=== PATIENT | male | born 1955 | race Caucasian/White ===

== ENCOUNTER 2021-07-08 09:24 | Inpatient (IN) | payer MEDICARE, OTHER, SELFPAY ==
[2021-07-08] VITALS (29 sets, daily range): BP systolic 112–163; BP diastolic 65–102; PULSE 70–127; RESP 13–39; TEMP 35.1–38.3; O2SAT 93–115; BMI 44.0; BMI 43.4
--- NOTE | 2021-07-08 09:59 | DI.US.S_ITS ---
PROCEDURE: US SCROTUM INDICATIONS: SWELLING AND CELLULITIS. ?ABSCESS TECHNIQUE: Real-time scanning was performed of the scrotum and testicles, with image documentation. Color and pulse Doppler interrogation was performed of both testicles. COMPARISON: None. FINDINGS: Right: Testicle is normal in size at 5 x 3.5 x 3.4 cm, and homogenous in echotexture. Epididymis is normal in overall size and morphology. No hydrocele or varicoceles. Scrotal wall is thickened measuring 1.5 cm. Left: Testicle is normal in size at 4.8 x 4.4 x 2.2 cm, and homogeneous in echotexture. Epididymis is normal in overall size. Small epididymal head cysts. Largest measuring 0.6 cm. No hydrocele or varicoceles. Scrotal wall is thickened measuring 3.8 cm. There is increased blood flow within the scrotum. No abscess demonstrated. Doppler: Color and pulse Doppler demonstrate increased arterial flow in both testes. Venous flow on the right is not seen. Venous flow in the left is present. IMPRESSION: 1. Bilateral scrotal wall thickening with hyperemia. Left greater than right. This is suggestive of cellulitis. No fluid collection to suggest abscess. 2. Increased blood flow in both testes. This is concerning for orchitis or epididymoorchitis. 3. No testicular mass. 4. Incidental small left epididymal head cysts. Dictated by: Imer Astorga M.D. on 07/08/2021 at 10:46 Approved by: Imer Astorga M.D. on 07/08/2021 at 10:51
--- NOTE | 2021-07-08 10:04 | ED.MALEGU ---
HPI - Male Genitourinary General Chief complaint: Urogenital-Male Stated complaint: sore on inside of leg, groin area, infected Time Seen by Provider: 07/08/21 09:44 Source: patient Mode of arrival: Ambulatory Limitations: no limitations History of Present Illness HPI Narrative: This is a 66-year-old male comes emergency department with known history of atrial fibrillation anticoagulated on Xarelto. Patient states he has had a history of cyst in his groin and armpits in the past. They typically swell and drain after 2-3 days. Patient states he had a cyst start on the right upper scrotum last week. He states that he had increasing swelling in the system ventrally opened and drained but he has had increasing swelling of both testicles since then. Does not appreciate swelling up into his abdomen. He does not appreciate redness into his abdomen. He denies abdominal, back or flank pain. He started doxycycline and has had 3 doses of oral doxycycline. He has not had an objective fever but has felt chilled and hot intermittently. He denies chest pain or shortness of breath. He denies any nausea or vomiting. He denies any diarrhea constipation. He states he has been urinating but has some difficulty secondary to the swelling but is able to urinate but has to sit down. Patient states the testicles have become quite tender. He states there has been some yellow bloody drainage from the right testicle at the area of opening. Patient states it has been warm and hot. He has not had this problem and particularly in the past. He states he does not have any other prior surgeries, urological, no cardiac ablations or stents. He has only had dental procedures. Denies any drug allergies but states some drugs do make his stomach upset. He quit smoking 4 years ago after a 50 pack year history. Quit drinking 12-15 years ago. No illicit. His primary care is Dr. Barrientos. Patient went to an urgent care 2 days ago had had lab work was started on antibiotics at that point. Related Data Home Medications Medication Instructions Recorded Confirmed doxycycline hyclate 100 mg capsule 100 mg PO TID 07/08/21 07/08/21 metoprolol succinate 50 mg 50 mg PO DAILY 07/08/21 07/08/21 tablet,extended release 24 hr rivaroxaban 20 mg tablet (Xarelto) 20 mg PO DAILY 07/08/21 07/08/21 Allergies Allergy/AdvReac Type Severity Reaction Status Date / Time No Known Drug Allergies Allergy Verified 07/08/21 16:34 Review of Systems Review of Systems ROS Unobtainable: All systems reviewed & are unremarkable except as noted in HPI and below Patient History Social History household members: spouse and children Smoking Status: Former smoker alcohol intake: never Smoking Status: Former smoker Substance Use Type: does not use Exam Narrative Exam Narrative: GENERAL: Alert and oriented x three, obese male in [id number] distress. HEENT: Head normocephalic, atraumatic, EOMI, pupils reactive, face symmetric, moist mucous membranes NECK: Supple, full range of motion CARDIOVASCULAR: Regular rate and rhythm without murmurs, rubs or gallops. RESPIRATORY: Breath sounds equal bilaterally, no wheezes rales or rhonchi. ABDOMEN: Soft, nontender. Normoactive bowel sounds all 4 quadrants. No guarding or rebound, rigidity, no mass : No CVA tenderness. Male: Patient has significant swelling of bilateral testicles and the tissue surrounding penis. Testicles are approximately small cantaloupe size on each side. There is erythema, there is warmth there is induration with an area dimpling with some drainage at the right lateral upper region of the scrotal sac. There is a foul odor consistent with infection. There is no penile discharge or lesions, penis is visualized but is difficult to fully visualize secondary to surrounding swelling. Patient does have tenderness to palpation. No clear area of fluctuance is easily palpated. EXTREMITIES: Normal range of motion, no clubbing or edema. Neurovascularly intact NEUROLOGICAL: Cranial nerves II through XII grossly intact. Moving all extremities SKIN: Warm, dry, no petechiae, no rashes or lesions. Initial Vital Signs Initial Vital Signs: Vital Signs Temperature 99.1 F 07/08/21 09:24 Pulse Rate 126 H 07/08/21 09:24 Respiratory Rate 18 07/08/21 09:24 Blood Pressure 160/102 H 07/08/21 09:24 Pulse Oximetry 98 07/08/21 09:24 Course Orders Ordered: ED Orders 07/08/21 11:26 Blood Culture Stat 07/08/21 12:33 CT pelvis w con Stat 07/08/21 13:10 Urinalysis and Microscopic Stat 07/08/21 14:54 [place] [facility] [place] Fentanyl (Fentanyl 100 Mcg/2 Ml Inj) 0 mcg IV Q5M PRN PRN Reason: Pain, Moderate (4-6) Hydromorphone HCl (Hydromorphone 2 Mg Inj) 0 mg IV Q5M PRN PRN Reason: Pain, Severe (7-10) Levofloxacin (Levaquin) 750 mg in 150 mls @ 100 mls/hr IV NOW [facility] Last Infusion: 07/08/21 14:20 Dose: 0 mls/hr Documented by: Admin: 07/08/21 12:45 Dose: 100 mls/hr Documented by: KEITH Lactated Ringer's (Lactated Ringers) 500 mls @ 25 mls/hr IV CONT SUNIL Lactated Ringer's (Lactated Ringers) 1,000 mls @ 42 mls/hr IV NOW ONE Stop: 07/09/21 16:53 Last Admin: 07/08/21 17:05 Dose: 42 mls/hr Documented by: APRESTON Lorazepam (Lorazepam 2 Mg/Ml Inj) 0.25 mg IV NOW PRN PRN Reason: Anxiety Ondansetron HCl (Ondansetron 4 Mg/2 Ml Inj) 4 mg IV NOW PRN PRN Reason: Nausea And Vomiting Oxycodone/Acetaminophen (Oxycodone/Acetaminophen 5/325 Tablet) 1 tab PO PACUNOW PRN PRN Reason: Mild or Moderate Pain Discontinued Medications Bupivacaine Liposome (Bupivacaine Liposome 266 Mg/20 Ml Vial) 266 mg INJ INTRA-OP ONE Stop: 07/08/21 16:59 Sodium Chloride 500 ml/Neomycin/Polymyxin/Bacitr/Hydrocort 1 ml 0 ml IRR NOW ONE Stop: 07/08/21 16:59 Last Admin: 07/08/21 17:54 Dose: 500 ml Documented by: BEVERLEY Bupivacaine HCl 30 ml/ (Epinephrine HCl 0.15 mg) 0 ml INJ NOW ONE Stop: 07/08/21 17:53 Last Admin: 07/08/21 17:53 Dose: 30 ml Documented by: BEVERLEY Piperacillin Sod/Tazobactam (Sod 4.5 gm/ Sodium Chloride) 100 mls @ 200 mls/hr IV NOW ONE Stop: 07/08/21 10:00 Last Infusion: 07/08/21 12:18 Dose: 0 mls/hr Documented by: Admin: 07/08/21 11:45 Dose: 200 mls/hr Documented by: KEITH Sodium Chloride (Normal Saline 0.9%) 1,000 mls @ 1,000 mls/hr IV BOLUS ONE Stop: 07/08/21 11:03 Last Infusion: 07/08/21 15:52 Dose: 0 mls/hr Documented by: Admin: 07/08/21 11:45 Dose: 1,000 mls/hr Documented by: KEITH Vancomycin HCl 3,000 mg/ (Sodium Chloride) 500 mls @ 166.667 mls/hr IV NOW ONE Stop: 07/08/21 13:29 Prothrombin Complex Concent ( Human) 2,000 unit/Miscellaneous 80 mls @ 1,061.41 mls/hr IV NOW ONE; Protocol Stop: 07/08/21 14:02 Last Infusion: 07/08/21 15:00 Dose: 0 unit/kg/min, 0 mls/hr Documented by: Admin: 07/08/21 14:54 Dose: 3 unit/kg/min, 1,061.41 mls/hr Documented by: KEITH Ampicillin Sodium/Sulbactam (Sodium 3 gm/ Sodium Chloride) 100 mls @ 100 mls/hr IV NOW ONE Stop: 07/08/21 16:59 Last Infusion: 07/08/21 17:59 Dose: 0 mls/hr Documented by: Admin: 07/08/21 17:45 Dose: 100 mls/hr Documented by: DIOGO Gentamicin Sulfate 240 mg/ (Sodium Chloride) 106 mls @ 106 mls/hr IV NOW ONE Stop: 07/08/21 16:59 Gentamicin Sulfate 240 mg/ (Sodium Chloride) 124 mls @ 124 mls/hr IV NOW ONE Stop: 07/08/21 18:14 Last Infusion: 07/08/21 17:33 Dose: 0 mls/hr Documented by: Admin: 07/08/21 17:29 Dose: 124 mls/hr Documented by: DIOGO Ketorolac Tromethamine (Ketorolac 30 Mg/Ml Vial) 15 mg IV NOW ONE Stop: 07/08/21 12:50 Last Admin: 07/08/21 13:21 Dose: 15 mg Documented by: KEITH Reevaluation(s) Time: 12:34 Consultations Consultation #1: Dr. Ceron, urology, recommends CT pelvis without contrast but can have with contrast to rule out gas. Supportive measures. Versus most common cause. Admit to hospitalist. If they would like a surgical consult at he is happy to see but at this time suspects does not require surgical intervention. Time: 12:30 Consultation #2: Margarita, hospitalist, accepts. CT ordered. Jie will consult but states he would like to be contacted if he is from the hospitalist. Recontacted air Dwayne on CT. Jie contacted and at this time recommending transfer. We did discuss that regional bed availability is extremely limited and I may not be able to have the patient transferred in a short manner. They may need to go to the OR initially and then be transferred. Patient has been reversed with Kcentra per hospital protocol for Xarelto without vitamin K being given. Dr. Serrano, general surgery. 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 She agrees the patient is stable transfer be appropriate but if there is delay the patient should go to OR. She is happy to be contact with Dr. Ceron as needed if necessary. Consultation #3: Dr. Patel, urology at [facility] and is happy to see the patient but does agree that patient could go to the OR 1st locally for initial debridement. Case is currently closed but if Dr. Ceron feels patient needs to be transferred after seeing him in person and taking him to the OR they are happy to be involved in his care. Additional Consultation(s): Dr. Ceron with patient here in the department. Plan for OR and evaluation. Dependent on patient's findings in the OR he patient may need to be transferred to tertiary care facility. We discussed about the spoken with Urology at [facility] and they are happy to be involved with the patient's care. I have reviewed antibiotic coverage with both Urology at [facility] as well as with Dr. Ceron. Vital Signs Vital signs: Vital Signs - 8 hr 07/08/21 11:30 07/08/21 12:00 07/08/21 12:30 Pulse Rate 101 H 106 H 104 H Respiratory Rate 30 H 31 H 27 H Blood Pressure Pulse Oximetry 98 98 97 07/08/21 12:45 07/08/21 13:16 07/08/21 13:30 Pulse Rate 101 H 115 H 108 H Respiratory Rate 26 H 36 H 24 Blood Pressure 156/90 H Pulse Oximetry 98 98 07/08/21 14:00 07/08/21 14:18 07/08/21 14:30 Pulse Rate 108 H 121 H 125 H Respiratory Rate 26 H 39 H 34 H Blood Pressure 163/92 H Pulse Oximetry 95 07/08/21 14:31 07/08/21 15:00 Pulse Rate 127 H 118 H Respiratory Rate 32 H 30 H Blood Pressure 128/69 Pulse Oximetry MDM - Male Genitourinary Lab Data Result diagrams: 07/08/21 09:55 07/08/21 09:55 Labs: Lab Results 07/08/21 07/08/21 07/08/21 Range/Units 09:45 09:55 09:55 WBC 15.6 H (4.5-11.0) X10^3/uL RBC 5.40 (4.5-5.9) X10^6/uL Hgb 15.6 (13.5-17.5) g/dL Hct 45.8 (41-53) % MCV 84.8 (80-100) fL MCH 28.8 (26-34) PG MCHC 34.0 (30-36) % RDW 14.4 (11.6-14.8) % Plt Count 193 (150-400) X10^3/uL Neut % (Auto) 90.9 H (50-75) % Lymph % (Auto) 2.8 L (25-40) % [place] % (Auto) 6.1 (3-14) % Eos % (Auto) 0.1 L (2-4) % Baso % (Auto) 0.1 (0-2) % Neut # (Auto) 43694 H (5922-6011) /uL Lymph # (Auto) 400 L (9583-5241) /uL [place] # (Auto) 1000 H (0-900) /uL Eos # (Auto) 0 (0-450) /uL Baso # (Auto) 0 (0-100) /uL PT 23.3 H (10.1-12.7) SECONDS INR 2.1 H (0.9-1.3) APTT (26.4-36.2) SECONDS Sodium (137-145) mmol/L Potassium (3.4-5.1) mmol/L Chloride (98-107) mmol/L Carbon Dioxide (22-32) mmol/L BUN (9-20) mg/dL Creatinine (0.66-1.25) mg/dL Estimated GFR (>60) mL/min BUN/Creatinine Ratio (6-22) Glucose (80-110) mg/dL Lactate (0.7-2.1) mmol/L Calcium (8.4-10.2) mg/dL Total Bilirubin (0.2-1.3) mg/dL AST (17-59) IU/L ALT (<50) IU/L Alkaline Phosphatase (38-126) U/L Total Protein (6.3-8.2) g/dL Albumin (3.5-5.0) g/dL Globulin (1.7-4.1) g/dL Albumin/Globulin Ratio (1.0-2.8) Procalcitonin (<0.5) ng/mL Urine Color Urine Appearance Urine pH (4.5-8.0) Ur Specific [place] (1.000-1.035) Urine Protein (Negative) Urine Glucose (UA) (Negative) g/dL Urine Ketones (NEGATIVE) Urine Occult Blood (Negative) Urine Nitrate (Negative) Urine Bilirubin (NEGATIVE) Urine Urobilinogen (0.2) E.U./dL Ur Leukocyte Esterase (NEGATIVE) Urine RBC (0-5/HPF) Urine WBC (0-5/HPF) Ur Squamous Epith Cells (0-5/HPF) Urine Bacteria (None) Hyaline Casts (None) Granular Casts (None) Urine Mucus (Negative) Ur Culture Indicated? SARS-CoV-2 (PCR) Negative (Negative) 07/08/21 07/08/21 07/08/21 Range/Units 09:55 09:55 09:55 WBC (4.5-11.0) X10^3/uL RBC (4.5-5.9) X10^6/uL Hgb (13.5-17.5) g/dL Hct (41-53) % MCV (80-100) fL MCH (26-34) PG MCHC (30-36) % RDW (11.6-14.8) % Plt Count (150-400) X10^3/uL Neut % (Auto) (50-75) % Lymph % (Auto) (25-40) % [place] % (Auto) (3-14) % Eos % (Auto) (2-4) % Baso % (Auto) (0-2) % Neut # (Auto) (4637-0530) /uL Lymph # (Auto) (6200-7605) /uL [place] # (Auto) (0-900) /uL Eos # (Auto) (0-450) /uL Baso # (Auto) (0-100) /uL PT (10.1-12.7) SECONDS INR (0.9-1.3) APTT 36 (26.4-36.2) SECONDS Sodium 135 L (137-145) mmol/L Potassium 4.0 (3.4-5.1) mmol/L Chloride 104 (98-107) mmol/L Carbon Dioxide 21 L (22-32) mmol/L BUN 23 H (9-20) mg/dL Creatinine 0.87 (0.66-1.25) mg/dL Estimated GFR > 60.0 (>60) mL/min BUN/Creatinine Ratio 26.4 H (6-22) Glucose 130 H (80-110) mg/dL Lactate 1.4 (0.7-2.1) mmol/L Calcium 9.2 (8.4-10.2) mg/dL Total Bilirubin 1.4 H (0.2-1.3) mg/dL AST 27 (17-59) IU/L ALT 19 (<50) IU/L Alkaline Phosphatase 84 (38-126) U/L Total Protein 7.8 (6.3-8.2) g/dL Albumin 4.2 (3.5-5.0) g/dL Globulin 3.6 (1.7-4.1) g/dL Albumin/Globulin Ratio 1.2 (1.0-2.8) Procalcitonin 0.42 (<0.5) ng/mL Urine Color Urine Appearance Urine pH (4.5-8.0) Ur Specific [place] (1.000-1.035) Urine Protein (Negative) Urine Glucose (UA) (Negative) g/dL Urine Ketones (NEGATIVE) Urine Occult Blood (Negative) Urine Nitrate (Negative) Urine Bilirubin (NEGATIVE) Urine Urobilinogen (0.2) E.U./dL Ur Leukocyte Esterase (NEGATIVE) Urine RBC (0-5/HPF) Urine WBC (0-5/HPF) Ur Squamous Epith Cells (0-5/HPF) Urine Bacteria (None) Hyaline Casts (None) Granular Casts (None) Urine Mucus (Negative) Ur Culture Indicated? SARS-CoV-2 (PCR) (Negative) 07/08/21 Range/Units 13:10 WBC (4.5-11.0) X10^3/uL RBC (4.5-5.9) X10^6/uL Hgb (13.5-17.5) g/dL Hct (41-53) % MCV (80-100) fL MCH (26-34) PG MCHC (30-36) % RDW (11.6-14.8) % Plt Count (150-400) X10^3/uL Neut % (Auto) (50-75) % Lymph % (Auto) (25-40) % Bound[place] % (Auto) (3-14) % Eos % (Auto) (2-4) % Baso % (Auto) (0-2) % Neut # (Auto) (7360-7042) /uL Lymph # (Auto) (4589-5323) /uL [place] # (Auto) (0-900) /uL Eos # (Auto) (0-450) /uL Baso # (Auto) (0-100) /uL PT (10.1-12.7) SECONDS INR (0.9-1.3) APTT (26.4-36.2) SECONDS Sodium (137-145) mmol/L Potassium (3.4-5.1) mmol/L Chloride (98-107) mmol/L Carbon Dioxide (22-32) mmol/L BUN (9-20) mg/dL Creatinine (0.66-1.25) mg/dL Estimated GFR (>60) mL/min BUN/Creatinine Ratio (6-22) Glucose (80-110) mg/dL Lactate (0.7-2.1) mmol/L Calcium (8.4-10.2) mg/dL Total Bilirubin (0.2-1.3) mg/dL AST (17-59) IU/L ALT (<50) IU/L Alkaline Phosphatase (38-126) U/L Total Protein (6.3-8.2) g/dL Albumin (3.5-5.0) g/dL Globulin (1.7-4.1) g/dL Albumin/Globulin Ratio (1.0-2.8) Procalcitonin (<0.5) ng/mL Urine Color Yellow Urine Appearance Clear Urine pH 5.0 (4.5-8.0) Ur Specific [place] 1.025 (1.000-1.035) Urine Protein 1+ H (Negative) Urine Glucose (UA) Trace H (Negative) g/dL Urine Ketones 1+ H (NEGATIVE) Urine Occult Blood 1+ H (Negative) Urine Nitrate Negative (Negative) Urine Bilirubin Negative (NEGATIVE) Urine Urobilinogen 0.2 (0.2) E.U./dL Ur Leukocyte Esterase Negative (NEGATIVE) Urine RBC 1-5/hpf (0-5/HPF) Urine WBC 1-5/hpf (0-5/HPF) Ur Squamous Epith Cells 0-1 /hpf (0-5/HPF) Urine Bacteria Many (>30) H (None) Hyaline Casts 0-1/lpf (None) Granular Casts 1-5/lpf (None) Urine Mucus 2+ H (Negative) Ur Culture Indicated? Cult not indicated SARS-CoV-2 (PCR) (Negative) Imaging Data US scrotum: Radiologist's Impression: [place] [address] Ultrasound Report Signed Patient: Bryan Cantu MR#: [id number] : 1955 Acct:[id number] Age/Sex: 66 / M Date of Service: 07/08/21 Loc: ED Accession Number: [id number] ?? Procedure: US scrotum Ordering Provider: Marifer Estrada D.O. PROCEDURE:? US SCROTUM ? INDICATIONS:? SWELLING AND CELLULITIS. ?ABSCESS ? TECHNIQUE:? Real-time scanning was performed of the scrotum and testicles, with image documentation.? Color and pulse Doppler interrogation was performed of both testicles.? ? COMPARISON:? None. ? FINDINGS:? ? Right:? Testicle is normal in size at 5 x 3.5 x 3.4 cm, and homogenous in echotexture.? Epididymis is normal in overall size and morphology.? No hydrocele or varicoceles.? Scrotal wall is thickened measuring 1.5 cm. ? Left:? Testicle is normal in size at 4.8 x 4.4 x 2.2 cm, and homogeneous in echotexture.? Epididymis is normal in overall size.? Small epididymal head cysts.? Largest measuring 0.6 cm.? No hydrocele or varicoceles.? Scrotal wall is thickened measuring 3.8 cm.? There is increased blood flow within the scrotum.? No abscess demonstrated. ? Doppler:? Color and pulse Doppler demonstrate increased arterial flow in both testes.? Venous flow on the right is not seen.? Venous flow in the left is present. ? IMPRESSION:? 1. Bilateral scrotal wall thickening with hyperemia.? Left greater than right.? This is suggestive of cellulitis.? No fluid collection to suggest abscess. ? 2. Increased blood flow in both testes.? This is concerning for orchitis or epididymoorchitis. ? 3. No testicular mass. ? 4. Incidental small left epididymal head cysts.? ? ? Dictated by: Imer Astorga M.D. on 07/08/2021 at 10:46 ? ? Approved by: Imer Astorga M.D. on 07/08/2021 at 10:51?? ECG Data Attestation: I personally reviewed and interpreted this ECG as follows: Prior ECG tracings: not available for review Interpretation: AFib with RVR, rate of 117, QRS of 94 and QTC of 460. No acute ST elevation appreciated. Nonspecific T-wave change. No priors available. MDM Narrative Medical decision making narrative: This is a 66-year-old male atrial fibrillation on Xarelto. Patient states he has developed cyst intermittently. He had 1 that started draining developed increasing swelling of bilateral testicles patient has had increasing pain. He has felt hot and cold been been afebrile in department. He is slightly tachycardic but in AFib RVR. This seemed responsive to fluids. On exam patient's findings are concerning for possible Estefany's. Labs show leukocytosis, normal renal function normal lactate. Patient was started on vanco, Levaquin and Zosyn. Ultrasound shows thickening but no clear fluid formation. Urology was consulted and CT pelvis shows air. Urology and I discussed they recommend transfer but based on fact that there will be a delay of transfer after discussion decision was made to take to the OR evaluate and if patient is still suspected have Estefany's plan is to transfer to a tertiary care facility. I did speak with Dr. Esther rodríguez with urology at [facility] and they are happy to see the patient after initial OR as necessary. Case was also discussed with Dr. Serrano our general surgeon. Discharge Plan Departure Patient Disposition: Admitted As Inpatient Clinical Impression: Cellulitis of scrotum, Sepsis Admit Date/Time: 07/08/21 15:10 Admit Provider: Naye Avila
[2021-07-08 10:11] LABS: Add Manual Diff / Slide Review NO; Basophils Absolute Auto 0 /uL (0-100); Basophils Percent Auto 0.1 % (0-2); Eosinophils Absolute Auto 0 /uL (0-450); Eosinophils Percent Auto 0.1 % (2-4); Hematocrit 45.8 % (41-53); Hemoglobin 15.6 g/dL (13.5-17.5); Lymphocytes Absolute Auto 400 /uL (1100-4500); Lymphocytes Percent Auto 2.8 % (25-40); Mean Corpuscular Hemoglobin 28.8 PG (26-34); Mean Corpuscular Volume 84.8 fL (80-100); Monocytes Absolute Auto 1000 /uL (0-900); Monocytes Percent Auto 6.1 % (3-14); Neutrophils Absolute Auto 14200 /uL (1500-7000); Neutrophils Percent Auto 90.9 % (50-75); Platelet Count 193 X10^3/uL (150-400); Red Cell Distribution Width 14.4 % (11.6-14.8); White Blood Cell Count 15.6 X10^3/uL (4.5-11.0)
[2021-07-08 10:13] LABS: INR 2.1 (0.9-1.3); Prothrombin Time 23.3 SECONDS (10.1-12.7)
[2021-07-08 10:19] LABS: Alanine Aminotransferase 19 IU/L (<50); Albumin 4.2 g/dL (3.5-5.0); Albumin Globulin Ratio 1.2 (1.0-2.8); Alkaline Phosphatase 84 U/L (38-126); Aspartate Aminotransferase 27 IU/L (17-59); BUN Creatinine Ratio 26.4 (6-22); Bilirubin Total 1.4 mg/dL (0.2-1.3); Blood Urea Nitrogen 23 mg/dL (9-20); Calcium 9.2 mg/dL (8.4-10.2); Carbon Dioxide 21 mmol/L (22-32); Chloride 104 mmol/L (98-107); Estimated Glomerular Filt Rate > 60.0 mL/min (>60); Globulin 3.6 g/dL (1.7-4.1); Glucose 130 mg/dL (80-110); HEMOLYSIS 18 (0-50); Lactate (Lactic Acid) 1.4 mmol/L (0.7-2.1); Sodium 135 mmol/L (137-145); Total Protein 7.8 g/dL (6.3-8.2)
[2021-07-08 10:34] LABS: PTT Partial Thromboplastin Tim 36 SECONDS (26.4-36.2); Procalcitonin 0.42 ng/mL (<0.5)
[2021-07-08 10:43] LABS: COVID19 -Nasal RAPID Negative (Negative)
[2021-07-08] MEDS: SODIUM CHLORIDE 0.9% 1,000 ML 1000 ML IV (11:45)
[2021-07-08] MEDS: PIPERACILLIN/TAZO 4.5 GM in SODIUM CHLORIDE 0.9% 100 ML 200 ML IV (11:45)
--- NOTE | 2021-07-08 12:33 | DI.CT.S_ITS ---
PROCEDURE: CT PELVIS W CON INDICATIONS: scrotal cellulitis, r/o gas TECHNIQUE: After the administration of intravenous contrast, 5 mm thick sections acquired from the iliac crests to the symphysis. 5 mm coronal and sagittal reformats were acquired. For radiation dose reduction, the following was used: automated exposure control, adjustment of mA and/or kV according to patient size. COMPARISON: None. FINDINGS: Image quality: Excellent. Peritoneum and bowel: Bowel loops demonstrate normal wall thickness and caliber. No free fluid or air. Severe sigmoid diverticulosis without evidence of diverticulitis. Genitourinary: Bladder wall thickness is normal. Nodes and vessels: No iliac, pelvic, or inguinal adenopathy by size criteria. Iliac vessels demonstrate normal size and enhancement. Bones: No suspicious bony lesions. 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 There is no gas to the left of midline. There is extensive cellulitic change. Comment: Findings were discussed with Dr. Estrada on 07/08/2021 at 1343 hours Dictated by: Faizan Fung M.D. on 07/08/2021 at 13:41 Approved by: Faizan Fung M.D. on 07/08/2021 at 13:44
[2021-07-08] MEDS: levoFLOXacin 750 MG/150 ML PIGGYBACK 100 MG IV (12:45)
[2021-07-08 13:16] LABS: Appearance Urine UA CLEAR; Bilirubin Urine UA NEGATIVE (NEGATIVE); Color Urine UA YELLOW; Glucose Urine UA TRACE g/dL (Negative); Ketones Urine UA 1+ (NEGATIVE); Leukocyte Esterase Urine UA NEGATIVE (NEGATIVE); Nitrite Urine UA NEGATIVE (Negative); Occult Blood Urine UA 1+ (Negative); Protein Urine UA 1+ (Negative); Specific Gravity Urine UA 1.025 (1.000-1.035); Urobilinogen Urine UA 0.2 E.U./dL (0.2)
[2021-07-08] MEDS: KETOROLAC 30 MG/ML VIAL 15 MG IV (13:21)
[2021-07-08 13:57] LABS: RBC Urine 1-5/HPF (0-5/HPF)
[2021-07-08 13:58] LABS: Bacteria Urine Many (>30); Granular Casts Urine 1-5/LPF; Hyaline Casts Urine 0-1/LPF; Mucus Urine 2+ (Negative); Squamous Epithelial Cell Urine 0-1 /HPF (0-5/HPF); WBC Urine 1-5/HPF (0-5/HPF)
[2021-07-08 13:59] LABS: Culture Indicated Urine Cult Not Indicated
--- NOTE | 2021-07-08 14:44 | PC.NURSE ---
Pt redness marked around genital area.
[2021-07-08] MEDS: PROTHROMBIN CPLX(PCC)4FACT 2,000 UNIT in ISOOSMOTIC VEHICLE 0 ML 1061.41 ML IV (14:54)
[2021-07-08 16:14] LABS: INR 1.6 (0.9-1.3); Prothrombin Time 17.7 SECONDS (10.1-12.7)
--- NOTE | 2021-07-08 16:26 | CM.DANOTE ---
Discharge Assoh Note: Patient is 66yo male pending admit vs transfer for cellulitis of scrotum and sepsis. Patient resides at home with his and adult son who is DDA connected. Patient reported his is culturally uncomfortable asking for help but is independent in community, drives, and can care for adult son while patient is admitted. Patient stated his home is 2 story and he had been planning to sell it for 1 story home in the near future so we could age in place. Patient is 10% disabled from service and receives minimum monthly financial for this. Patient is not VA connected or covered by VA benefits. Patient uses CPAP at home, no DME used at home currently. No home O2 use. Patient is very worried about outcome of his procedure I was not expecting all this to happen. Patient's spouse is POA. Patient has POA docs with him. Discharge Planning/Care Management CM Discharge Assessment Start: 07/08/21 16:19 Freq: Status: Active Protocol: Document 07/08/21 16:19 JONATHAN (Rec: 07/08/21 16:26 JONATHAN [id number]) Discharge Planning Assessment Assigned Cytogenetics Technologist Yao MARIN DPOA/Assigned Designee Name Rao Contact Information [phone] Advance Directives? No History Provided By Patient Has Patient been admitted in last 30 No days? Prior Living Arrangements House Comment 2 story, full baths are upstairs, pt worried about stair mobility after procedure Household Members spouse,children Comment Son is 33 diagnosed with Autism, is DDA connected Type of transporation used prior to Drives own vehicle admit Comment fully independent at baseline, no adaptive devices reported Independent with ADL's Yes Is patient alert and oriented? Yes Comment fully ind, no DME Caregiver for Another No: however, delayed adult son resides with him and spouse Comment patient will prefer HH vs facility if either is needed Barriers to Discharge No Discharge Plan Home Transportation Arrangement can transport patient via POV Whiteboard Updated in Patient Room with No name and ext. # of Cytogenetics Technologist Comment completed in ED setting Review Status In Process Next Review Type Continued Stay Review Yao MARIN
--- NOTE | 2021-07-08 16:37 | SUR.OPER ---
Supine on padded OR bed, head on pillow, arms secured on padded arm boards at <90 degrees abduction, legs uncrossed, safety belt at thigh, tape over blanket over lower legs.
--- NOTE | 2021-07-08 16:41 | PM.CN ---
History of Present Illness Consult details Date Patient Seen: 07/08/21 Time Patient Seen: 16:15 Chief complaint: sore on inside of leg, groin area, infected Reason for consult: Scrotal erythema and pain Requesting provider: Marifer Estrada Narrative: The patient is a 66-year-old morbidly obese white male who presented to the [facility] ED today with complaint of increasing scrotal pain, tenderness, and swelling. He states he has had a long history of intermittent ?cysts? of his axilla and groin. He states that they occasionally occur go through an inflammatory cycle and with warm compresses spontaneously drain and subsequently he will. Approximately 6 days ago he had onset of a similar event in the right upper hemiscrotum. Two days ago he presented to the walk-in clinic and was evaluated. He was prescribed doxycycline. He then went home and used warm compresses yesterday after at it spontaneously drained with some purulent/hemorrhagic drainage. Despite having taken 3 doxycycline the pain, tenderness, and swelling progressed in the last 24 hours prompting his presentation to the ED. He denies documented fever, but endorses having had some intermittent chills and some hot flashes with diaphoresis. He denies or GI complaints. He has no specific previous history. He has no previous diagnosis of diabetes. Presenting white blood cell count was 15.6 with left shift (90.9% neutrophils). Urinalysis is most consistent with contamination possibly related to scrotal skin edema. Meds Home Medications and Allergies Home Medications Medication Instructions Recorded Confirmed Type rivaroxaban 20 mg tablet (Xarelto) 20 mg PO DAILY 07/08/21 07/08/21 History Allergies Allergy/AdvReac Type Severity Reaction Status Date / Time No Known Drug Allergies Allergy Verified 07/08/21 16:34 Exam Vital Signs (past 8 hours): - 07/08/21 09:24 07/08/21 10:06 07/08/21 10:30 Temperature 99.1 F Pulse Rate 126 H 109 H 118 H Respiratory Rate 18 25 H 34 H Blood Pressure 160/102 H Pulse Oximetry 98 97 96 07/08/21 11:00 07/08/21 11:30 07/08/21 12:00 Temperature Pulse Rate 104 H 101 H 106 H Respiratory Rate 30 H 30 H 31 H Blood Pressure Pulse Oximetry 98 98 98 07/08/21 12:30 07/08/21 12:45 07/08/21 13:16 Temperature Pulse Rate 104 H 101 H 115 H Respiratory Rate 27 H 26 H 36 H Blood Pressure 156/90 H Pulse Oximetry 97 98 07/08/21 13:30 07/08/21 14:00 07/08/21 14:18 Temperature Pulse Rate 108 H 108 H 121 H Respiratory Rate 24 26 H 39 H Blood Pressure 163/92 H Pulse Oximetry 98 95 Oxygen Delivery Method Room Air Narrative Exam Narrative: He is a well-developed, morbidly obese white male line on the ED gurney in no apparent distress. Head/neck-sclera clear and pupils are round and equal bilaterally. No visible evidence of adenopathy or JVD. Chest-equal and unlabored expansion bilaterally. Heart-sinus tachycardia. Abdomen-obese, round, and mildly firm. No tenderness, guarding, or rebound. There is a margin of erythema just above the base of the penis and angling downward in lateral along the upper margin of the scrotum proper. Genitalia-for found edema and erythema of the scrotum and skin of the penile shaft. Glans is unremarkable with an orthotopic and patent meatus. Along the right lateral scrotum there is evidence of a recent drainage site and about a 2 cm area of deep ecchymosis. The patient is very tender and on limited exam I was not able the illicit focal fluctuance. The inferior right hemiscrotum has a 1/2 cm area of ecchymosis on the skin. Posteriorly there are no lesions or ecchymosis. Perineum is clear. Objective Labs Result Diagrams: 07/08/21 09:55 07/08/21 09:55 Labs: Laboratory Results - last 24 hr 07/08/21 07/08/21 07/08/21 09:45 09:55 09:55 WBC 15.6 H RBC 5.40 Hgb 15.6 Hct 45.8 MCV 84.8 MCH 28.8 MCHC 34.0 RDW 14.4 Plt Count 193 Neut % (Auto) 90.9 H Lymph % (Auto) 2.8 L [place] % (Auto) 6.1 Eos % (Auto) 0.1 L Baso % (Auto) 0.1 Neut # (Auto) 34708 H Lymph # (Auto) 400 L [place] # (Auto) 1000 H Eos # (Auto) 0 Baso # (Auto) 0 PT 23.3 H INR 2.1 H APTT Sodium Potassium Chloride Carbon Dioxide BUN Creatinine Estimated GFR BUN/Creatinine Ratio Glucose Lactate Calcium Total Bilirubin AST ALT Alkaline Phosphatase Total Protein Albumin Globulin Albumin/Globulin Ratio Procalcitonin Urine Color Urine Appearance Urine pH Ur Specific [place] Urine Protein Urine Glucose (UA) Urine Ketones Urine Occult Blood Urine Nitrate Urine Bilirubin Urine Urobilinogen Ur Leukocyte Esterase Urine RBC Urine WBC Ur Squamous Epith Cells Urine Bacteria Hyaline Casts Granular Casts Urine Mucus Ur Culture Indicated? SARS-CoV-2 (PCR) Negative 07/08/21 07/08/21 07/08/21 09:55 09:55 09:55 WBC RBC Hgb Hct MCV MCH MCHC RDW Plt Count Neut % (Auto) Lymph % (Auto) [place] % (Auto) Eos % (Auto) Baso % (Auto) Neut # (Auto) Lymph # (Auto) [place] # (Auto) Eos # (Auto) Baso # (Auto) PT INR APTT 36 Sodium 135 L Potassium 4.0 Chloride 104 Carbon Dioxide 21 L BUN 23 H Creatinine 0.87 Estimated GFR > 60.0 BUN/Creatinine Ratio 26.4 H Glucose 130 H Lactate 1.4 Calcium 9.2 Total Bilirubin 1.4 H AST 27 ALT 19 Alkaline Phosphatase 84 Total Protein 7.8 Albumin 4.2 Globulin 3.6 Albumin/Globulin Ratio 1.2 Procalcitonin 0.42 Urine Color Urine Appearance Urine pH Ur Specific [place] Urine Protein Urine Glucose (UA) Urine Ketones Urine Occult Blood Urine Nitrate Urine Bilirubin Urine Urobilinogen Ur Leukocyte Esterase Urine RBC Urine WBC Ur Squamous Epith Cells Urine Bacteria Hyaline Casts Granular Casts Urine Mucus Ur Culture Indicated? SARS-CoV-2 (PCR) 07/08/21 07/08/21 13:10 15:14 WBC RBC Hgb Hct MCV MCH MCHC RDW Plt Count Neut % (Auto) Lymph % (Auto) [place] % (Auto) Eos % (Auto) Baso % (Auto) Neut # (Auto) Lymph # (Auto) [place] # (Auto) Eos # (Auto) Baso # (Auto) PT 17.7 H D INR 1.6 H APTT Sodium Potassium Chloride Carbon Dioxide BUN Creatinine Estimated GFR BUN/Creatinine Ratio Glucose Lactate Calcium Total Bilirubin AST ALT Alkaline Phosphatase Total Protein Albumin Globulin Albumin/Globulin Ratio Procalcitonin Urine Color Yellow Urine Appearance Clear Urine pH 5.0 Ur Specific [place] 1.025 Urine Protein 1+ H Urine Glucose (UA) Trace H Urine Ketones 1+ H Urine Occult Blood 1+ H Urine Nitrate Negative Urine Bilirubin Negative Urine Urobilinogen 0.2 Ur Leukocyte Esterase Negative Urine RBC 1-5/hpf Urine WBC 1-5/hpf Ur Squamous Epith Cells 0-1 /hpf Urine Bacteria Many (>30) H Hyaline Casts 0-1/lpf Granular Casts 1-5/lpf Urine Mucus 2+ H Ur Culture Indicated? Cult not indicated SARS-CoV-2 (PCR) PFSH Social History household members: spouse and children Tobacco & Substance Use Smoking Status: Former smoker Assessment & Plan Assessment & Plan narrative: Assessment: 1. Right scrotal abscess/cellulitis. CT scan demonstrates focal pocket of gas the soft tissue of the scrotal wall with no evidence of extension superiorly or posteriorly into the perineum or long fascial or muscular planes. 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 Plan: 1. Thorough discussion informed consent obtained for urgent incision and drainage of right scrotal abscess. The patient was informed that the assessment is guarded with concern for early Estefany's gangrene. I discussed with him the possibility of transfer to tertiary care facility depending intraoperative findings and immediate perioperative course. 2. Recommend Infectious Disease consultation for appropriate broad-spectrum coverage of suspected organisms. Time Spent With Patient Critical Care time: I spent a total of [] minutes of critical care time on this patient's care today; this time is exclusive of procedural time.
[2021-07-08] MEDS: LACTATED RINGERS 1,000 ML 42 ML IV (17:05)
[2021-07-08] MEDS: GENTAMICIN 240 MG in SODIUM CHLORIDE 0.9% 100 ML 124 ML IV (17:29)
[2021-07-08] MEDS: AMPICILLIN/SULBACTAM 3 GM 3 GM in SODIUM CHLORIDE 0.9% 100 ML IV (17:45)
[2021-07-08] MEDS: BUPIVACAINE 0.25% (PF) 30 ML, EPINEPHrine 0.15 MG INJ (17:53)
[2021-07-08] MEDS: SODIUM CHLORIDE 0.9% 500 ML, NEOMYCIN/POLYMYXIN B IRR 1 ML IRR (17:54)
--- NOTE | 2021-07-08 19:15 | PM.OP.1 ---
Operative Date/Time/Diagnoses Date of procedure: 07/08/21 Time of procedure: 19:15 Pre-op diagnosis: Right scrotal abscess Post-op diagnosis: same Procedure & Clinicians Procedure: 1. Incision, drainage, and debridement right scrotal abscess. Same procedure as scheduled: Yes Indications: Right scrotal abscess Surgeon: Lizette Ceron Click Yes if Unassisted: Yes Anesthesia Type: General and Local (0.5% Marcaine with epinephrine) Operative Notes Findings: Marked scrotal cellulitis and thickening of the wall. Abscess cavity was oriented longitudinally in the axis of the spermatic cord within subcutaneous scrotal wall tissue. Approximately 10 cc of malodorous brownish green thick purulent material was drained. Extensive surrounding necrotic tissue and inflammatory peel. Closure Type: non-primary Specimen(s): other (G stain, aerobic and anaerobic cultures) Estimated Blood Loss (mL): 5 Blood products transfused: none Procedure in detail: The patient was positioned frog-leg supine was administered general anesthesia. The lower abdomen, groin, and genitalia were then prepped and draped in sterile fashion. A Tara clamp was then insinuated in the skin opening of previous spontaneous drainage and the abscess cavity was pro to manipulated. Appropriate g stain and cultures were obtained. Local anesthetic was then infiltrated into the skin and subcutaneous tissue in that vicinity, superior, and inferior. A longitudinal incision was then extended superiorly and inferiorly. Necrotic, nonviable and inflammatory peel was meticulously excise using blunt sharp dissection. Very few, small bleeders were cauterized as needed for hemostasis. The wound cavity was then copiously irrigated with Betadine solution diluted with sterile saline 1-1. 500 cc of irrigant was then used to irrigate the wound cavity in the same manner. Hemostasis was satisfactory. A 1 in iodoform tape was then packed into the wound cavity and wound bed. Over this 4 x 4 sterile gauze was applied and then over this an abundance of sterile fluff dressing. The patient was then fitted with net underwear to hold the fluff dressings in place. Patient was then awakened, transferred to [facility] and transferred recovery in stable condition. Complications: none Post-operative Condition: stable Disposition: PACU Plan for aftercare: Admit to acute care.
--- NOTE | 2021-07-08 19:19 | SUR.PHASEI ---
Addendum entered by Tere Lake R.N. 07/08/21 19:20: Afib noted on the monitor at a rate of 108; surgical site with small amount of drainage noted; here with CPAP. Original Note: Patient awake and talking to nurse; denies any pain or SOB; vss; afb no
[2021-07-08] MEDS: LACTATED RINGERS 1,000 ML 125 ML IV (20:06)
[2021-07-08 21:31] LABS: Add Manual Diff / Slide Review NO; Basophils Absolute Auto 100 /uL (0-100); Basophils Percent Auto 0.6 % (0-2); Eosinophils Absolute Auto 0 /uL (0-450); Hematocrit 40.1 % (41-53); Hemoglobin 13.7 g/dL (13.5-17.5); Lymphocytes Absolute Auto 500 /uL (1100-4500); Lymphocytes Percent Auto 3.3 % (25-40); Mean Corpuscular HGB Conc 34.2 % (30-36); Mean Corpuscular Hemoglobin 28.8 PG (26-34); Mean Corpuscular Volume 84.4 fL (80-100); Monocytes Absolute Auto 1300 /uL (0-900); Monocytes Percent Auto 8.7 % (3-14); Neutrophils Absolute Auto 13200 /uL (1500-7000); Neutrophils Percent Auto 87.4 % (50-75); Platelet Count 189 X10^3/uL (150-400); Red Blood Cell Count 4.76 X10^6/uL (4.5-5.9); Red Cell Distribution Width 14.5 % (11.6-14.8); White Blood Cell Count 15.1 X10^3/uL (4.5-11.0)
--- NOTE | 2021-07-08 21:45 | P.HP_ITS ---
History of Present Illness History of Present Illness Date Patient Seen: 07/08/21 Time Patient Seen: 20:30 Chief complaint: Scrotal infection concerning for Fornier's gangren Narrative: Bryan Cantu is?a 66-year-old morbidly obese male presented to the emergency department with known history of atrial fibrillation anticoagulated on Xarelto, obstructive sleep apnea, and chronic hydronitis supporativa.? Patient states he has had a history of cyst in his groin and armpits in the past typically swell and drain after 2-3 days.? Patient states he had a cyst start on the right upper scrotum last week.? He states that he had increasing swelling in his scrotum and eventually opened and drained but now he has had increasing swelling of both testicles since then.? Denied swelling up into his abdomen or redness into his abdomen.? He denies abdominal, back or flank pain.? He was seen in the Walk-in clinic and started on oral doxycycline and has had at total of 3 doses.?He has not had an objective fever but has felt chilled and hot intermittently.? He denies chest pain or shortness of breath.? He denies any nausea or vomiting.? He denies any diarrhea constipation.? He states he has been urinating but has some difficulty secondary to the swelling but is able to urinate but has to sit down.? Patient states the testicles have become quite painful and have become freak show large.? He states there has been some yellow bloody drainage from the right testicle at the area of opening and it has been warm and hot.? He has not had this problem and particularly in the past.? He states he does not have any other prior surgeries, urological, no cardiac ablations or stents.? He has only had dental procedures and a remote history of an appendectomy.? Denies any drug allergies but states some drug, specifically clindamycin makes his stomach upset.? He quit smoking 4 years ago after a 50 pack year history.? Quit drinking 12-15 years ago.? No illicit.? His primary care is Dr. Barrientos.? Dr. Raza Urology was consulted by the ED who took him to the OR where he decompressed the scrotum, debrided it and placed an iodiform tape to drain the wound. The hospitalist service is requested to admit the patient, administer antibiotics, consult Infectious Disease, monitor him for progressive swelling and drainage and if appropriate have him transferred over to [facility] for further surgical intervention. The emergency department spoke to Dr. Patel, Urology at [facility]?who recommended immediate local surgical intervention with possible transfer for further surgical intervention in the case the patient deteriorates. He was administered IV Zosyn and Vancomycin, and ordered for ampicillin/sulbactim and gentimycin post surgery. Recommendation was also made to consult Infectious Disease regarding antibiotic coverage. Blood and wound cultures were collected and sent for sensitivity and specificity. CT of the pelvis reported findings consistent with Estefany's gangrene. Patient is currently afebrile, blood pressure 112/73, heart rate 70, respiratory rate 18, oxygen saturation of 98% on room air he weighs 150.6 kg with a BMI of 43.4. His white count is markedly elevated at 15.1, with a left shift of 13,200, platelet count 189, sodium 135, bicarb 21, BUN is 23, glucose 130, lactate normal, and total bilirubin 1.4, procalcitonin is negative, UA is negative for a UTI and COVID-19 PCR is negative. Patient History Medical History (Updated 07/08/21 @ 23:19 by TAMMY Veras) History of hidradenitis suppurativa Hypertension Left parietal mass Morbid obesity Obstructive sleep apnea Family & Social History Family History (Updated 07/08/21 @ 23:17 by TAMMY Veras) Father Myocardial infarct Mother Alive and well Social History: household members spouse,children Prior Living Arrangements House Safety & Behavioral: Feels Safe in Current Yes Environment Been Physically Hurt or No Threatened By a Person Suicidal Ideation Description None Suicide Plan Description No Plan Tobacco & Substance use: Smoking Status Former smoker, quit 4 years ago alcohol intake Quit 15 years ago Substance Use Type does not use Meds Home Medications and Allergies Home Medications Medication Instructions Recorded Confirmed Type doxycycline hyclate 100 mg capsule 100 mg PO TID 07/08/21 07/08/21 History metoprolol succinate 50 mg 50 mg PO DAILY 07/08/21 07/08/21 History tablet,extended release 24 hr rivaroxaban 20 mg tablet (Xarelto) 20 mg PO DAILY 07/08/21 07/08/21 History Allergies Allergy/AdvReac Type Severity Reaction Status Date / Time No Known Drug Allergies Allergy Verified 07/08/21 16:34 Review of Systems Review of Systems ROS: Yes All systems reviewed with the patient and are negative except as o therwise documented Exam Vital Signs (past 8 hours): - 07/08/21 14:00 07/08/21 14:18 07/08/21 14:30 Temperature Pulse Rate 108 H 121 H 125 H Respiratory Rate 26 H 39 H 34 H Blood Pressure 163/92 H Pulse Oximetry 95 07/08/21 14:31 07/08/21 15:00 07/08/21 15:30 Temperature Pulse Rate 127 H 118 H 113 H Respiratory Rate 32 H 30 H 30 H Blood Pressure 128/69 Pulse Oximetry 07/08/21 16:00 07/08/21 16:30 07/08/21 16:39 Temperature 95.1 F L Pulse Rate 117 H 112 H 95 H Respiratory Rate 25 H 33 H 20 Blood Pressure 135/81 Pulse Oximetry 97 07/08/21 19:06 07/08/21 19:10 07/08/21 19:11 Temperature 100.4 F H Pulse Rate 106 H 102 H 102 H Respiratory Rate 20 13 14 Blood Pressure 148/70 H 134/81 134/81 Pulse Oximetry 115 H 94 94 07/08/21 19:16 07/08/21 19:21 07/08/21 19:45 Temperature 98.7 F 100.9 F H Pulse Rate 108 H 103 H 104 H Respiratory Rate 16 21 16 Blood Pressure 113/88 142/83 H 132/72 Pulse Oximetry 94 94 94 07/08/21 20:14 07/08/21 20:45 Temperature 100.2 F H 98.8 F Pulse Rate 117 H 109 H Respiratory Rate 16 16 Blood Pressure 125/67 114/65 Pulse Oximetry 95 94 Oxygen Delivery Method Room Air Oxygen Flow Rate 0 Narrative Exam Narrative: Gen: Alert, oriented, morbidly obese 66 y.o. male, post-surgical HEENT: normocephalic, atraumatic, conjunctiva clear, sclera non-icteric, oral mucosa pink and moist Neck: supple, full ROM, no JVD, trachea is midline Resp: Lungs CTA, non-labored breathing CV: RRR, no murmur or rubs Abd: soft, non-tender, normoactive BTs Skin: has dressing on scrotum, not examined Neuro: Alert and oriented X 4 w/no focal deficits. Speech clear and coherent. Extremities: moves all 4 extremities, is ambulatory, negative Marcelo?s sign Psyche: normal mood and affect. Objective Labs Result Diagrams: 07/08/21 21:20 07/08/21 09:55 Labs: Laboratory Results - last 24 hr 07/08/21 07/08/21 07/08/21 09:45 09:55 09:55 WBC 15.6 H RBC 5.40 Hgb 15.6 Hct 45.8 MCV 84.8 MCH 28.8 MCHC 34.0 RDW 14.4 Plt Count 193 Neut % (Auto) 90.9 H Lymph % (Auto) 2.8 L [place] % (Auto) 6.1 Eos % (Auto) 0.1 L Baso % (Auto) 0.1 Neut # (Auto) 49802 H Lymph # (Auto) 400 L [place] # (Auto) 1000 H Eos # (Auto) 0 Baso # (Auto) 0 PT 23.3 H INR 2.1 H APTT Sodium Potassium Chloride Carbon Dioxide BUN Creatinine Estimated GFR BUN/Creatinine Ratio Glucose Lactate Calcium Total Bilirubin AST ALT Alkaline Phosphatase Total Protein Albumin Globulin Albumin/Globulin Ratio Procalcitonin Urine Color Urine Appearance Urine pH Ur Specific [place] Urine Protein Urine Glucose (UA) Urine Ketones Urine Occult Blood Urine Nitrate Urine Bilirubin Urine Urobilinogen Ur Leukocyte Esterase Urine RBC Urine WBC Ur Squamous Epith Cells Urine Bacteria Hyaline Casts Granular Casts Urine Mucus Ur Culture Indicated? SARS-CoV-2 (PCR) Negative 07/08/21 07/08/21 07/08/21 09:55 09:55 09:55 WBC RBC Hgb Hct MCV MCH MCHC RDW Plt Count Neut % (Auto) Lymph % (Auto) [place] % (Auto) Eos % (Auto) Baso % (Auto) Neut # (Auto) Lymph # (Auto) [place] # (Auto) Eos # (Auto) Baso # (Auto) PT INR APTT 36 Sodium 135 L Potassium 4.0 Chloride 104 Carbon Dioxide 21 L BUN 23 H Creatinine 0.87 Estimated GFR > 60.0 BUN/Creatinine Ratio 26.4 H Glucose 130 H Lactate 1.4 Calcium 9.2 Total Bilirubin 1.4 H AST 27 ALT 19 Alkaline Phosphatase 84 Total Protein 7.8 Albumin 4.2 Globulin 3.6 Albumin/Globulin Ratio 1.2 Procalcitonin 0.42 Urine Color Urine Appearance Urine pH Ur Specific [place] Urine Protein Urine Glucose (UA) Urine Ketones Urine Occult Blood Urine Nitrate Urine Bilirubin Urine Urobilinogen Ur Leukocyte Esterase Urine RBC Urine WBC Ur Squamous Epith Cells Urine Bacteria Hyaline Casts Granular Casts Urine Mucus Ur Culture Indicated? SARS-CoV-2 (PCR) 07/08/21 07/08/21 07/08/21 13:10 15:14 21:20 WBC 15.1 H RBC 4.76 Hgb 13.7 Hct 40.1 L MCV 84.4 MCH 28.8 MCHC 34.2 RDW 14.5 Plt Count 189 Neut % (Auto) 87.4 H Lymph % (Auto) 3.3 L [place] % (Auto) 8.7 Eos % (Auto) 0.0 L Baso % (Auto) 0.6 Neut # (Auto) 09931 H Lymph # (Auto) 500 L [place] # (Auto) 1300 H Eos # (Auto) 0 Baso # (Auto) 100 PT 17.7 H D INR 1.6 H APTT Sodium Potassium Chloride Carbon Dioxide BUN Creatinine Estimated GFR BUN/Creatinine Ratio Glucose Lactate Calcium Total Bilirubin AST ALT Alkaline Phosphatase Total Protein Albumin Globulin Albumin/Globulin Ratio Procalcitonin Urine Color Yellow Urine Appearance Clear Urine pH 5.0 Ur Specific [place] 1.025 Urine Protein 1+ H Urine Glucose (UA) Trace H Urine Ketones 1+ H Urine Occult Blood 1+ H Urine Nitrate Negative Urine Bilirubin Negative Urine Urobilinogen 0.2 Ur Leukocyte Esterase Negative Urine RBC 1-5/hpf Urine WBC 1-5/hpf Ur Squamous Epith Cells 0-1 /hpf Urine Bacteria Many (>30) H Hyaline Casts 0-1/lpf Granular Casts 1-5/lpf Urine Mucus 2+ H Ur Culture Indicated? 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 Raza * Will start IV Zosyn and vancomycin, will need to switch fluids to Normal Saline as LR is incompatible with both Zosyn or meropenum * Wound and blood cultures pending 2. Chronic atrial fibrillation anticoagulated on rivaroxaban, present on admission * Anticoagulation is being held until cleared by General Surgery * Continue home dose of metoprolol 3. Obstructive sleep apnea, present on admission * Patient brought his CPAP machine and will use 4. Morbid obesity, chronic * Places him at higher risk for respiratory complications VTE Prophylaxis: Wells risk score 0 [Contrainidicated]Enoxaparin 40 mg subQ once daily Bilateral SCDs Patient is currently anticoagulated on rivaroxaban which is currently being held. Patient is admitted to the inpatient service due to the severity of disease, risks of further disease progression and this stay is expected to exceed 2 midnights. FEN: IV fluids: IV NS, diet: cardiac, labs: CBC, C/BMP, liver enzymes, Mag, PT/INR Consultants Dr. Raza, Urology, care and involvement in the patient?s care is appreciated. Dispo: unknown at this time Code status: Full code as discussed with the patient who identifies , Rao as his primary surrogate and his sister, Mariajose, who is a nurse and lives in [place] as his secondary DPOA. [X] I have utilized all available immediate resources to obtain, update, or review of the patient's current medications COVID-19 COVID-19 status: Negative Result date/Date tested (Pos, Neg/Pending): 07/08/21 Time Spent With Patient Critical Care time: I spent a total of [] minutes of critical care time on this patient's care today; this time is exclusive of procedural time. Scores Wells' Criteria for PE Clinical signs and symptoms of DVT: No PE is #1 Dx or equally likely: No Heart rate > 100: No Immobilization at least 3 days or surg in previous 4 weeks: No History of PE or DVT: No Hemoptysis: No Malignancy w/Treatment within 6 months or palliative: No Wells' PE Score total: 0 Quality VTE Deep Vein Thrombosis/Pulmonary Embolism Present on Admission: No MIPS - Admit I confirm the patient?s Advance Care Plan is present, Code status is documented, Surrogate decision maker is in patient?s record [If Yes, STOP here]: Yes MIPS - DC The patient has current or prior documentation of left ventricular ejection fraction (LVEF) less than 40%, or moderate or severely depressed left ventricular systolic function.: No
[2021-07-08] MEDS: VANCOMYCIN 3,000 MG/600 ML PIGGYBACK 200 MG IV (22:23)
[2021-07-08] MEDS: SODIUM CHLORIDE 0.9% 1,000 ML 125 ML IV (22:25)
[2021-07-08] MEDS: MELATONIN 3 MG TABLET 6 MG PO (23:20)
--- NOTE | 2021-07-08 23:40 | PC.ADMIT ---
Addendum entered by Nikki Steven R.N. 07/09/21 05:49: Has been asleep for past several hours. Now awake and states scrotal discomfort and rates severity as 6/10 but declines narcotics and wants to take only Tylenol. Medicated with Tylenol but informed him that if pain not relieved he can still take something stronger. Offered ice pack but declines. Addendum entered by Nikki Steven R.N. 07/08/21 23:47: Did have elevated temperature on admission of 100.9 but is currently afebrile. Original Note: Patient admitted to room 202 from PACU at 1930 following I&D of scrotal abscess. Is alert and oriented. Breath sounds CTA with RA sat of 94%; placed on continuous oximetry. HR irregular with rate of 104; has hx of afib. Denied nausea. BT present and stated he has passed flatus at time of assessment. Around 2200 patient able to void but only 25cc with bladder scan of 413cc. Attempted a second time to urinate but only able to void 15cc. Indwelling catheter placed with return of clear, dark judy urine; patient tolerated procedure well. Scrotum is edematous and firm; approximately size of cantaloupe. Dressing to scrotum CDI and wearing mesh panty. Scrotum elevated using pillow cases as sling and provided ice packs. Denied pain and continues to deny pain at present time. Is able to move himself in bed. Wearing bilateral calf SCD's. Fall risk score is low. Provided with I.S. and able to get to 3500 x 10 breaths. [address] [facility] Admission Note: The patient,Bryan Cantu,66 y/o, was given written information regarding hospital policies, unit procedures and contact persons. Patient's smoking status: Former smoker. Vital Signs - 8 hr 07/08/21 16:00 07/08/21 16:30 07/08/21 16:39 Temperature 95.1 F L Pulse Rate 117 H 112 H 95 H Respiratory Rate 25 H 33 H 20 Blood Pressure 135/81 Pulse Oximetry 97 07/08/21 19:06 07/08/21 19:10 07/08/21 19:11 Temperature 100.4 F H Pulse Rate 106 H 102 H 102 H Respiratory Rate 20 13 14 Blood Pressure 148/70 H 134/81 134/81 Pulse Oximetry 115 H 94 94 07/08/21 19:16 07/08/21 19:21 07/08/21 19:45 Temperature 98.7 F 100.9 F H Pulse Rate 108 H 103 H 104 H Respiratory Rate 16 21 16 Blood Pressure 113/88 142/83 H 132/72 Pulse Oximetry 94 94 94 07/08/21 20:14 07/08/21 20:45 07/08/21 22:00 Temperature 100.2 F H 98.8 F 98.0 F Pulse Rate 117 H 109 H 83 Respiratory Rate 16 16 16 Blood Pressure 125/67 114/65 115/69 Pulse Oximetry 95 94 93 07/08/21 22:50 Temperature 98.0 F Pulse Rate 70 Respiratory Rate 18 Blood Pressure 112/73 Pulse Oximetry 98
[2021-07-09] VITALS (10 sets, daily range): BP systolic 112–154; BP diastolic 71–95; PULSE 86–108; RESP 16–22; TEMP 35.9–37.8; O2SAT 92–98
[2021-07-09] MEDS: PIPERACILLIN/TAZO 3.375 GM in SODIUM CHLORIDE 0.9% 100 ML 25 ML IV ×3 (01:42→20:37)
[2021-07-09] MEDS: ACETAMINOPHEN 325 MG TABLET 650 MG PO (05:47)
[2021-07-09 06:32] LABS: Add Manual Diff / Slide Review NO; Basophils Absolute Auto 0 /uL (0-100); Basophils Percent Auto 0.2 % (0-2); Eosinophils Absolute Auto 0 /uL (0-450); Eosinophils Percent Auto 0.1 % (2-4); Hematocrit 39.1 % (41-53); Hemoglobin 13.2 g/dL (13.5-17.5); Lymphocytes Absolute Auto 700 /uL (1100-4500); Lymphocytes Percent Auto 4.8 % (25-40); Mean Corpuscular HGB Conc 33.9 % (30-36); Mean Corpuscular Hemoglobin 28.8 PG (26-34); Monocytes Absolute Auto 1300 /uL (0-900); Monocytes Percent Auto 9.1 % (3-14); Neutrophils Absolute Auto 11900 /uL (1500-7000); Neutrophils Percent Auto 85.8 % (50-75); Platelet Count 181 X10^3/uL (150-400); Red Cell Distribution Width 14.5 % (11.6-14.8); White Blood Cell Count 13.9 X10^3/uL (4.5-11.0)
[2021-07-09 06:43] LABS: Alanine Aminotransferase 15 IU/L (<50); Albumin 3.4 g/dL (3.5-5.0); Albumin Globulin Ratio 1.1 (1.0-2.8); Alkaline Phosphatase 62 U/L (38-126); Aspartate Aminotransferase 18 IU/L (17-59); BUN Creatinine Ratio 22.9 (6-22); Bilirubin Total 1.3 mg/dL (0.2-1.3); Blood Urea Nitrogen 19 mg/dL (9-20); Calcium 8.2 mg/dL (8.4-10.2); Carbon Dioxide 24 mmol/L (22-32); Chloride 103 mmol/L (98-107); Estimated Glomerular Filt Rate > 60.0 mL/min (>60); Globulin 3.2 g/dL (1.7-4.1); Glucose 117 mg/dL (80-110); HEMOLYSIS < 15 (0-50); Magnesium 1.9 mg/dL (1.6-2.3); Potassium 3.8 mmol/L (3.4-5.1); Sodium 133 mmol/L (137-145); Total Protein 6.6 g/dL (6.3-8.2)
--- NOTE | 2021-07-09 07:53 | P.PN_ITS ---
Subjective Subjective Date Patient Seen: 07/09/21 Time Patient Seen: 07:53 Interval history: Postoperative day 1 status post incision, drainage, and debridement of right scrotal wall abscess. Patient is tolerating p.o.. He found it difficult to void to completion and at uneventful placement of Abrams catheter during the night. He denies significant pain at rest. Exam Vital Signs (past 8 hours): - 07/09/21 00:33 07/09/21 05:41 Temperature 100.0 F H Pulse Rate 89 Respiratory Rate 16 Blood Pressure 131/92 H Pulse Oximetry 98 97 Oxygen Delivery Method Room Air,CPAP Oxygen Flow Rate 0 Narrative Exam Narrative: He is resting comfortably in bed in no distress. Abdomen-unchanged contour. Nontender. Bowel tones are active. The erythematous margin is unchanged and shows color improvement above penile base. Genitalia scrotal wall and penile shaft remained edematous. Warmth is improved. No fluctuance. Dressings are intact with modest is serosanguineous soiling. Objective Labs Result Diagrams: 07/09/21 06:20 07/09/21 06:20 Labs: Laboratory Results - last 24 hr 07/08/21 07/08/21 07/08/21 09:45 09:55 09:55 WBC 15.6 H RBC 5.40 Hgb 15.6 Hct 45.8 MCV 84.8 MCH 28.8 MCHC 34.0 RDW 14.4 Plt Count 193 Neut % (Auto) 90.9 H Lymph % (Auto) 2.8 L [place] % (Auto) 6.1 Eos % (Auto) 0.1 L Baso % (Auto) 0.1 Neut # (Auto) 70068 H Lymph # (Auto) 400 L [place] # (Auto) 1000 H Eos # (Auto) 0 Baso # (Auto) 0 PT 23.3 H INR 2.1 H APTT Sodium Potassium Chloride Carbon Dioxide BUN Creatinine Estimated GFR BUN/Creatinine Ratio Glucose Lactate Calcium Magnesium Total Bilirubin Conjugated Bilirubin Unconjugated Bilirubin AST ALT Alkaline Phosphatase Total Protein Albumin Globulin Albumin/Globulin Ratio Procalcitonin Urine Color Urine Appearance Urine pH Ur Specific [place] Urine Protein Urine Glucose (UA) Urine Ketones Urine Occult Blood Urine Nitrate Urine Bilirubin Urine Urobilinogen Ur Leukocyte Esterase Urine RBC Urine WBC Ur Squamous Epith Cells Urine Bacteria Hyaline Casts Granular Casts Urine Mucus Ur Culture Indicated? SARS-CoV-2 (PCR) Negative 07/08/21 07/08/21 07/08/21 09:55 09:55 09:55 WBC RBC Hgb Hct MCV MCH MCHC RDW Plt Count Neut % (Auto) Lymph % (Auto) [place] % (Auto) Eos % (Auto) Baso % (Auto) Neut # (Auto) Lymph # (Auto) [place] # (Auto) Eos # (Auto) Baso # (Auto) PT INR APTT 36 Sodium 135 L Potassium 4.0 Chloride 104 Carbon Dioxide 21 L BUN 23 H Creatinine 0.87 Estimated GFR > 60.0 BUN/Creatinine Ratio 26.4 H Glucose 130 H Lactate 1.4 Calcium 9.2 Magnesium Total Bilirubin 1.4 H Conjugated Bilirubin Unconjugated Bilirubin AST 27 ALT 19 Alkaline Phosphatase 84 Total Protein 7.8 Albumin 4.2 Globulin 3.6 Albumin/Globulin Ratio 1.2 Procalcitonin 0.42 Urine Color Urine Appearance Urine pH Ur Specific [place] Urine Protein Urine Glucose (UA) Urine Ketones Urine Occult Blood Urine Nitrate Urine Bilirubin Urine Urobilinogen Ur Leukocyte Esterase Urine RBC Urine WBC Ur Squamous Epith Cells Urine Bacteria Hyaline Casts Granular Casts Urine Mucus Ur Culture Indicated? SARS-CoV-2 (PCR) 07/08/21 07/08/21 07/08/21 13:10 15:14 21:20 WBC 15.1 H RBC 4.76 Hgb 13.7 Hct 40.1 L MCV 84.4 MCH 28.8 MCHC 34.2 RDW 14.5 Plt Count 189 Neut % (Auto) 87.4 H Lymph % (Auto) 3.3 L [place] % (Auto) 8.7 Eos % (Auto) 0.0 L Baso % (Auto) 0.6 Neut # (Auto) 92387 H Lymph # (Auto) 500 L [place] # (Auto) 1300 H Eos # (Auto) 0 Baso # (Auto) 100 PT 17.7 H D INR 1.6 H APTT Sodium Potassium Chloride Carbon Dioxide BUN Creatinine Estimated GFR BUN/Creatinine Ratio Glucose Lactate Calcium Magnesium Total Bilirubin Conjugated Bilirubin Unconjugated Bilirubin AST ALT Alkaline Phosphatase Total Protein Albumin Globulin Albumin/Globulin Ratio Procalcitonin Urine Color Yellow Urine Appearance Clear Urine pH 5.0 Ur Specific [place] 1.025 Urine Protein 1+ H Urine Glucose (UA) Trace H Urine Ketones 1+ H Urine Occult Blood 1+ H Urine Nitrate Negative Urine Bilirubin Negative Urine Urobilinogen 0.2 Ur Leukocyte Esterase Negative Urine RBC 1-5/hpf Urine WBC 1-5/hpf Ur Squamous Epith Cells 0-1 /hpf Urine Bacteria Many (>30) H Hyaline Casts 0-1/lpf Granular Casts 1-5/lpf Urine Mucus 2+ H Ur Culture Indicated? Cult not indicated SARS-CoV-2 (PCR) 07/09/21 07/09/21 06:20 06:20 WBC 13.9 H RBC 4.60 Hgb 13.2 L Hct 39.1 L MCV 85.0 MCH 28.8 MCHC 33.9 RDW 14.5 Plt Count 181 Neut % (Auto) 85.8 H Lymph % (Auto) 4.8 L [place] % (Auto) 9.1 Eos % (Auto) 0.1 L Baso % (Auto) 0.2 Neut # (Auto) 66951 H Lymph # (Auto) 700 L [place] # (Auto) 1300 H Eos # (Auto) 0 Baso # (Auto) 0 PT INR APTT Sodium 133 L Potassium 3.8 Chloride 103 Carbon Dioxide 24 BUN 19 Creatinine 0.83 Estimated GFR > 60.0 BUN/Creatinine Ratio 22.9 H Glucose 117 H Lactate Calcium 8.2 L Magnesium 1.9 Total Bilirubin 1.3 Conjugated Bilirubin 0.0 Unconjugated Bilirubin 1.0 AST 18 ALT 15 Alkaline Phosphatase 62 Total Protein 6.6 Albumin 3.4 L Globulin 3.2 Albumin/Globulin Ratio 1.1 Procalcitonin Urine Color Urine Appearance Urine pH Ur Specific [place] Urine Protein Urine Glucose (UA) Urine Ketones Urine Occult Blood Urine Nitrate Urine Bilirubin Urine Urobilinogen Ur Leukocyte Esterase Urine RBC Urine WBC Ur Squamous Epith Cells Urine Bacteria Hyaline Casts Granular Casts Urine Mucus Ur Culture Indicated? SARS-CoV-2 (PCR) COUNT INCLUDES THE [facility] Medical History History of hidradenitis suppurativa Hypertension Left parietal mass Morbid obesity Obstructive sleep apnea Family History Father Myocardial infarct Mother Alive and well Social History household members: spouse and children Smoking Status: Former smoker alcohol intake: never Assessment & Plan Assessment & Plan narrative: Assessment: 1. Stable/improved postoperative day 1 status post incision, drainage, and debridement of right scrotal abscess. 2. Disposition pending. Plan: 1. Will continue wound in genital monitoring with serial CBC. 2. Continue current antibiotic regimen. Consider transition to 6 sulfa based antibiotic as clinical and laboratory status improved. 3. nutrition services manager Consult. Specifically, home health for daily wound care. 4. I will contact [facility] and investigate available services and request outpatient consult. 5. Consider repeat pelvic CT to include genitalia should patient status show stalled improvement or deterioration. Time Spent With Patient Critical Care time: I spent a total of [] minutes of critical care time on this patient's care today ; this time is exclusive of procedural time. Quality VTE Deep Vein Thrombosis/Pulmonary Embolism Present on Admission: No
[2021-07-09] MEDS: METOPROLOL ER 50 MG TABLET PO (08:07)
[2021-07-09] MEDS: DOCUSATE 100 MG CAPSULE PO ×2 (08:07→20:38)
[2021-07-09] MEDS: VANCOMYCIN 1,000 MG/200 ML PIGGYBACK 200 MG IV ×3 (08:08→23:36)
[2021-07-09] MEDS: OXYCODONE IR 5 MG TABLET PO ×2 (08:28→20:42)
[2021-07-09] MEDS: OXYCODONE/ACETAMINOPHEN 5/325 TABLET 1 TAB PO (15:40)
--- NOTE | 2021-07-09 17:28 | P.PN_ITS ---
Subjective Subjective Date Patient Seen: 07/09/21 Time Patient Seen: 08:00 Interval history: He went to surgery with urology yesterday. Today he feels his pain is much better controlled. Exam Vital Signs (past 8 hours): - 07/09/21 10:24 07/09/21 11:22 07/09/21 12:30 Temperature 97.4 F L Pulse Rate 91 H 86 Respiratory Rate 20 Blood Pressure 132/80 132/80 Pulse Oximetry 95 96 Oxygen Delivery Method Room Air Oxygen Flow Rate 0 Narrative Exam Narrative: Gen: no acute distress Resp: clear bilaterally Abd: soft, non-tender, normal bowel sounds Skin: scrotum is markedly swollen, minimally tender to touch, erythematous, bandage is clear dry and intact Objective Labs Result Diagrams: 07/09/21 06:20 07/09/21 06:20 Labs: Laboratory Results - last 24 hr 07/08/21 07/09/21 07/09/21 21:20 06:20 06:20 WBC 15.1 H 13.9 H RBC 4.76 4.60 Hgb 13.7 13.2 L Hct 40.1 L 39.1 L MCV 84.4 85.0 MCH 28.8 28.8 MCHC 34.2 33.9 RDW 14.5 14.5 Plt Count 189 181 Neut % (Auto) 87.4 H 85.8 H Lymph % (Auto) 3.3 L 4.8 L [place] % (Auto) 8.7 9.1 Eos % (Auto) 0.0 L 0.1 L Baso % (Auto) 0.6 0.2 Neut # (Auto) 98150 H 77864 H Lymph # (Auto) 500 L 700 L [place] # (Auto) 1300 H 1300 H Eos # (Auto) 0 0 Baso # (Auto) 100 0 Sodium 133 L Potassium 3.8 Chloride 103 Carbon Dioxide 24 BUN 19 Creatinine 0.83 Estimated GFR > 60.0 BUN/Creatinine Ratio 22.9 H Glucose 117 H Calcium 8.2 L Magnesium 1.9 Total Bilirubin 1.3 Conjugated Bilirubin 0.0 Unconjugated Bilirubin 1.0 AST 18 ALT 15 Alkaline Phosphatase 62 Total Protein 6.6 Albumin 3.4 L Globulin 3.2 Albumin/Globulin Ratio 1.1 [facility] Medical History History of hidradenitis suppurativa Hypertension Left parietal mass Morbid obesity Obstructive sleep apnea Family History Father Myocardial infarct Mother Alive and well Social History household members: spouse and children Smoking Status: Former smoker alcohol intake: never Assessment & Plan Assessment & Plan narrative: Bryan Cantu is admitted as an inpatient for further surgical an antibiotic management of necrotizing cellulitis and abscess of the scrotum 1. 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 Chronic atrial fibrillation anticoagulated on rivaroxaban, present on admission -Anticoagulation is being held until cleared by General Surgery -Continue home dose of metoprolol 3. Obstructive sleep apnea, present on admission -continue home CPAP 4. Morbid obesity, chronic -BMI 45 -follow up as outpatient with PCP Time Spent With Patient Critical Care time: I spent a total of [] minutes of critical care time on this patient's care today; this time is exclusive of procedural time. Quality VTE Deep Vein Thrombosis/Pulmonary Embolism Present on Admission: No
[2021-07-09] MEDS: CLINDAMYCIN 900 MG/50 ML PIGGYBACK 50 MG IV (18:47)
[2021-07-09] MEDS: SODIUM CHLORIDE 0.9% 1,000 ML 125 ML IV (18:48)
--- NOTE | 2021-07-09 19:01 | PC.NURSE ---
A&Ox4. VSS. Pain in scrotum 2-10/29, given PRN tylenol and percocet. Ice applied to scrotum and elevated with towels. Dressing changed and new mesh panties applied. Not much of an appetite today. Abrams cath draining dark yellow urine. Call light within reach, bed low.
[2021-07-09] MEDS: SENNOSIDES 8.6 MG TABLET 17.2 MG PO (20:38)
[2021-07-09] MEDS: MELATONIN 3 MG TABLET 6 MG PO (20:43)
[2021-07-10] VITALS (8 sets, daily range): BP systolic 112–147; BP diastolic 59–97; PULSE 71–96; RESP 16–18; TEMP 36.2–37.2; O2SAT 95–97
[2021-07-10] MEDS: CLINDAMYCIN 900 MG/50 ML PIGGYBACK 50 MG IV ×3 (00:56→19:17)
[2021-07-10] MEDS: PIPERACILLIN/TAZO 3.375 GM in SODIUM CHLORIDE 0.9% 100 ML 25 ML IV (02:02)
[2021-07-10] MEDS: METOPROLOL ER 50 MG TABLET PO (08:28)
[2021-07-10] MEDS: DOCUSATE 100 MG CAPSULE PO ×2 (08:29→21:08)
[2021-07-10 09:37] LABS: Add Manual Diff / Slide Review NO; Basophils Absolute Auto 0 /uL (0-100); Basophils Percent Auto 0.4 % (0-2); Eosinophils Absolute Auto 0 /uL (0-450); Eosinophils Percent Auto 0.2 % (2-4); Hematocrit 37.9 % (41-53); Hemoglobin 12.9 g/dL (13.5-17.5); Lymphocytes Absolute Auto 600 /uL (1100-4500); Mean Corpuscular HGB Conc 34.1 % (30-36); Mean Corpuscular Hemoglobin 28.8 PG (26-34); Mean Corpuscular Volume 84.5 fL (80-100); Monocytes Absolute Auto 900 /uL (0-900); Monocytes Percent Auto 8.7 % (3-14); Neutrophils Absolute Auto 9100 /uL (1500-7000); Neutrophils Percent Auto 84.7 % (50-75); Platelet Count 208 X10^3/uL (150-400); Red Blood Cell Count 4.48 X10^6/uL (4.5-5.9); Red Cell Distribution Width 14.3 % (11.6-14.8); White Blood Cell Count 10.8 X10^3/uL (4.5-11.0)
[2021-07-10 09:59] LABS: BUN Creatinine Ratio 21.6 (6-22); Blood Urea Nitrogen 16 mg/dL (9-20); Calcium 8.3 mg/dL (8.4-10.2); Carbon Dioxide 23 mmol/L (22-32); Chloride 105 mmol/L (98-107); Estimated Glomerular Filt Rate > 60.0 mL/min (>60); Glucose 117 mg/dL (80-110); HEMOLYSIS < 15 (0-50); Potassium 3.6 mmol/L (3.4-5.1); Sodium 135 mmol/L (137-145)
[2021-07-10 10:02] LABS: Vancomycin Trough 8.1 ug/mL (10-20)
[2021-07-10] MEDS: ENOXAPARIN 40 MG/0.4 ML SYRINGE SUBCUT ×2 (10:58→21:08)
[2021-07-10] MEDS: VANCOMYCIN TROUGH 1 REQUEST MISC (10:58)
[2021-07-10] MEDS: VANCOMYCIN 1,500 MG/300 ML PIGGYBACK 200 MG IV ×2 (11:25→21:08)
--- NOTE | 2021-07-10 12:36 | DI.CT.S_ITS ---
PROCEDURE: CT ABDOMEN PELVIS WO CON INDICATIONS: Re-evaluate right scrotal abscess TECHNIQUE: Axial sections were acquired from the lung bases to the pubic symphysis. Coronal and sagittal reformats were performed. For radiation dose reduction, the following was used: automated exposure control, adjustment of mA and/or kV according to patient size. COMPARISON: [facility], US, US SCROTUM, 07/08/2021, 10:12. [facility], CT, CT PELVIS W CON, 07/08/2021, 12:52. FINDINGS: Image quality: Excellent. Lung bases: Right posterior costophrenic sulcus atelectasis/consolidation and trace effusion. Heart: No significant findings. URINARY: Right Kidney: No stones or hydronephrosis. Right Ureter: No hydroureter. Left Kidney: No stones or hydronephrosis. Left Ureter: No hydroureter. Bladder: The bladder is decompressed around a Abrams catheter balloon. ABDOMEN: Liver: Mild hepatic enlargement and slight hepatic steatosis. Gallbladder: Normal wall thickness. Biliary ducts: Nondilated. Pancreas: Normal. Spleen: Normal size. Adrenal Glands: No nodules. . Stomach and Bowel: There is diverticulosis throughout the colon, most significantly in the sigmoid colon. No acute surrounding inflammation. Normal stomach and decompressed small bowel loops. Peritoneum: No abnormal intraperitoneal fluid. No free air. Ventral Wall: No hernia. Abdominal Nodes: No enlarged retroperitoneal or mesenteric lymph nodes. Vessels: Aorta and inferior vena cava are normal in size. Mild abdominal aortic atherosclerotic calcification. PELVIS: Pelvic Organs: The prostate gland is normal size. Normal seminal vesicles. No suspicious fluid collections. No soft tissue gas in the inter pelvis. Pelvic Nodes: There are enlarged bilateral common external iliac lymph nodes, similar compared to prior. Miscellaneous: There is extensive scrotal edema. Soft tissue defect is present lateral to the right testicle. There has been resolution of scrotal soft tissue gas. No inguinal hernias. Bones: There is ankylosis of the sacroiliac joints and central superior endplate depression of L2. Bridging osteophytes in the thoracolumbar spine. IMPRESSION: 1. Interval resolution of soft tissue gas in the right hemiscrotum status post debridement. There is significant persistent edema of the scrotum. 2. No evidence of soft tissue gas, inflammation or fluid collections in the internal pelvis to suggest ascending infection. 3. There is reactive external iliac chain adenopathy. 4. Colonic diverticulosis. 5. Probable trace effusion and right lung base atelectasis. Dictated by: Esthela Guajardo M.D. on 07/10/2021 at 14:44 Approved by: Esthela Guajardo M.D. on 07/10/2021 at 14:58
[2021-07-10] MEDS: KETOROLAC 30 MG/ML VIAL IV ×2 (12:45→22:23)
[2021-07-10 14:31] LABS: Vancomycin Peak 14.4 ug/mL (20-40)
--- NOTE | 2021-07-10 15:21 | P.PN_ITS ---
Subjective Subjective Date Patient Seen: 07/10/21 Time Patient Seen: 12:15 Interval history: Postoperative day 2. Status post incision, drainage, and debridement of large right scrotal wall abscess. The patient denies pain at rest. He reports pain and tenderness upon transfer in and out of bed. He has been out of bed to brush his teeth. He denies chills or diaphoresis. Exam Vital Signs (past 8 hours): - 07/10/21 07:27 07/10/21 07:30 07/10/21 08:28 Temperature 97.1 F L Pulse Rate 76 95 H 76 Respiratory Rate 16 18 Blood Pressure 112/59 L 128/76 Pulse Oximetry 96 95 07/10/21 11:01 Temperature Pulse Rate 93 H Respiratory Rate Blood Pressure 147/97 H Pulse Oximetry Oxygen Delivery Method Room Air Oxygen Flow Rate 0 Narrative Exam Narrative: Morbidly obese white male resting in supine without acute distress. His cheeks and forehead appear a bit flushed today. Abdomen-bowel tones are again normal and active. The erythematous line has advanced superiorly at least 5 cm from where had been 24 hours ago at just 2 cm above the penile base. It is mildly warm to touch. No fluctuance. There is no crepitus. Genitalia-penile shaft remains edematous and mildly erythematous. Scrotum remains markedly enlarged firm and erythematous. The small, approximately 1 cm of lightly violaceous region directly inferior to the wound is now perhaps 3 x 1 cm. On palpation there is no crepitus or fluctuance. The iodoform pack is removed and the wound inspected. The anterior skin edge appears to have some compromised vascularity will probably require debridement. There is no exudate or odor from the wound. The wound is repacked with a damp sterile saline damp to dry packing 4x4s were then applied over this in the net underwear was then repositioned. Objective Labs Result Diagrams: 07/10/21 08:32 07/10/21 08:32 Labs: Laboratory Results - last 24 hr 07/10/21 07/10/21 07/10/21 08:32 08:32 08:32 WBC 10.8 RBC 4.48 L Hgb 12.9 L Hct 37.9 L MCV 84.5 MCH 28.8 MCHC 34.1 RDW 14.3 Plt Count 208 Neut % (Auto) 84.7 H Lymph % (Auto) 6.0 L [place] % (Auto) 8.7 Eos % (Auto) 0.2 L Baso % (Auto) 0.4 Neut # (Auto) 9100 H Lymph # (Auto) 600 L [place] # (Auto) 900 Eos # (Auto) 0 Baso # (Auto) 0 Sodium 135 L Potassium 3.6 Chloride 105 Carbon Dioxide 23 BUN 16 Creatinine 0.74 Estimated GFR > 60.0 BUN/Creatinine Ratio 21.6 Glucose 117 H Calcium 8.3 L Vancomycin Peak Vancomycin Trough 8.1 L 07/10/21 13:30 WBC RBC Hgb Hct MCV MCH MCHC RDW Plt Count Neut % (Auto) Lymph % (Auto) [place] % (Auto) Eos % (Auto) Baso % (Auto) Neut # (Auto) Lymph # (Auto) [place] # (Auto) Eos # (Auto) Baso # (Auto) Sodium Potassium Chloride Carbon Dioxide BUN Creatinine Estimated GFR BUN/Creatinine Ratio Glucose Calcium Vancomycin Peak 14.4 L Vancomycin Trough [facility] Medical History History of hidradenitis suppurativa Hypertension Left parietal mass Morbid obesity Obstructive sleep apnea Family History Father Myocardial infarct Mother Alive and well Social History household members: spouse and children Smoking Status: Former smoker alcohol intake: never Assessment & Plan Assessment & Plan narrative: Assessment: 1. Stable postoperative day 2 status post incision, drainage, and debridement of large right scrotal wall abscess. 2. Afebrile today and CBC is improved. However, clinical exam in the area wound provides continued concern and high suspicion for possible complicated course. Repeat CT imaging today is reviewed and demonstrates no evidence of recurrent gas or gas along tissue planes. Formal radiology report is pending. Plan: 1. Continue current antibiotic regimen. 2. In process of coordination of care with [facility] and request for transfer of care for reasons of possible clinical deterioration, need for possible multiple reoperations for debridement and tissue coverage and on availability of in Hospital Wound Care team or nursing to provide appropriate care needs for the patient. Time Spent With Patient Critical Care time: I spent a total of [] minutes of critical care time on this patient's care today; this time is exclusive of procedural time. Quality VTE Deep Vein Thrombosis/Pulmonary Embolism Present on Admission: No
--- NOTE | 2021-07-10 16:38 | CM.DPC ---
DCP/continued: Briefly reviewed chart. Met with patient this AM to discuss d/c planning. It is anticipated that patient will need wound care upon d/c from [facility] CM team received phone call from Jhoana/wound care clinic ext# [phone] indicating that she was given referral from urology office. No discharge anticipated for today. Patient resides with his spouse/Akiyo in [place]. Patient reports that he could get to/from outpatients wound care appointments if needed. Depending on status at time of d/c may want to consider home health if complicated? CM team to continue to follow closely for d/c planning needs. Anticipate home with outpatient wound care f/u vs home health. Outpatient wound care center has referral. [facility]
--- NOTE | 2021-07-10 17:40 | P.DS_ITS ---
History of Present Illness History of Present Illness Chief complaint: Scrotal infection concerning for Fornier's gangren Narrative: Per Nickie Tucker: Bryan Cantu is?a 66-year-old morbidly obese male presented to the emergency department with known history of atrial fibrillation anticoagulated on Xarelto, obstructive sleep apnea, and chronic hydronitis supporativa.? Patient states he has had a history of cyst in his groin and armpits in the past typically swell and drain after 2-3 days.? Patient states he had a cyst start on the right upper scrotum last week.? He states that he had increasing swelling in his scrotum and eventually opened and drained but now he has had increasing swelling of both testicles since then.? Denied swelling up into his abdomen or redness into his abdomen.? He denies abdominal, back or flank pain.? He was seen in the [facility] and started on oral doxycycline and has had at total of 3 doses.?He has not had an objective fever but has felt chilled and hot intermittently.? He denies chest pain or shortness of breath.? He denies any nausea or vomiting.? He denies any diarrhea constipation.? He states he has been urinating but has some difficulty secondary to the swelling but is able to urinate but has to sit down.? Patient states the testicles have become quite verito nful and have become freak show large.? He states there has been some yellow bloody drainage from the right testicle at the area of opening and it has been warm and hot.? He has not had this problem and particularly in the past.? He states he does not have any other prior surgeries, urological, no cardiac ablations or stents.? He has only had dental procedures and a remote history of an appendectomy.? Denies any drug allergies but states some drug, specifically clindamycin makes his stomach upset.? He quit smoking 4 years ago after a 50 pack year history.? Quit drinking 12-15 years ago.? No illicit.? His primary care is Dr. Barrientos.? Dr. Raza Urology was consulted by the ED who took him to the OR where he decompressed the scrotum, debrided it and placed an iodiform tape to drain the wound.? The hospitalist service is requested to admit the patient, administer antibiotics, consult Infectious Disease, monitor him for progressive swelling and drainage and if appropriate have him transferred over to [facility] for further surgical intervention.? The emergency department spoke to Dr. Patel, Urology at [facility]?who recommended immediate local surgical intervention with possible transfer for further surgical intervention in the case the patient deteriorates. He was administered IV Zosyn and Vancomycin, and ordered for ampicillin/sulbactim and gentimycin post surgery.? Recommendation was also made to consult Infectious Disease regarding antibiotic coverage. Blood and wound cultures were collected and sent for sensitivity and specificity. 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 Patient is currently afebrile, blood pressure 112/73, heart rate 70, respiratory rate 18, oxygen saturation of 98% on room air he weighs 150.6 kg with a BMI of 43.4.? His white count is markedly elevated at 15.1, with a left shift of 13,200, platelet count 189, sodium 135, bicarb 21, BUN is 23, glucose 130, lactate normal, and total bilirubin 1.4, procalcitonin is negative, UA is negative for a UTI and COVID-19 PCR is negative. Discharge Providers Provider Date of admission: 07/08/21 15:10 Discharge Date: 07/10/21 Consults: 07/08/21 14:54 Consult to [facility] - Mobile Device Developer Stat Comment: [facility] Consult: Community Health Res Need 07/08/21 16:59 Consult to Respiratory Therapy Evaluate & Treat Comment: Physician Instructions: Evaluate and treat 07/08/21 21:41 Consult to Physician Routine Comment: Consulting Provider: Lizette Ceron Reason for consultation: scrotal infection concerning for Fornier's gangene Has provider been notified: Yes 07/08/21 23:08 Consult to Respiratory Therapy Evaluate & Treat Comment: CPAP Physician Instructions: Evaluate and treat 07/09/21 07:52 Consult to [facility] - Mobile Device Developer Routine Comment: Home health and daily wound care. Discharge provider: Abel Ambrosio MD Summary Hospital Course Discharge Diagnosis: 1. Acute scrotal wall cellulitis and scrotal abscess s/p debridement 2. Chronic atrial fibrillation 3. PAMELA on CPAP 4. Morbid obesity Hospital Course: Mr. Cantu was admitted to the hospital with scrotal swelling and pain. He was found to have a scrotal cellulitis and abscess. He was taken to surgery on 07/08 for debridement. He was continue on broad spectrum antibiotics with vancomycin, zosyn, and clindamycin was added for antitoxin effect. Gram stain from the wound showed 4+ GPCs, not further speciated at time of discharge. Urology noted patient did not have silvana's gangrene. After surgery he was monitored and remained hemodynamically stable. However he did have increasing spread of polo laceious skin and also erythema on to the belly. Urology noted that he would likely need further surgical intervention and given his continued progression despite initial debridement and antibiotics, it was recommended he be transferred to higher level of care. For possible wound care, infectious disease consultation as well due to this not being available at this hospital. Code: Full Proxy: A[place] Exam Vital Signs (past 8 hours): - 07/10/21 11:01 Pulse Rate 93 H Blood Pressure 147/97 H Oxygen Delivery Method Room Air Oxygen Flow Rate 0 Narrative Exam Narrative: Gen: no acute distress Resp: clear bilaterally Abd: soft, non-tender, normal bowel sounds Skin: scrotum is markedly swollen, minimally tender to touch, erythematous, bandage is clear dry and intact, wound appears to have some purpleish discoloration Objective Labs Result Diagrams: 07/10/21 08:32 07/10/21 08:32 Labs: Laboratory Results - last 24 hr 07/10/21 07/10/21 07/10/21 08:32 08:32 08:32 WBC 10.8 RBC 4.48 L Hgb 12.9 L Hct 37.9 L MCV 84.5 MCH 28.8 MCHC 34.1 RDW 14.3 Plt Count 208 Neut % (Auto) 84.7 H Lymph % (Auto) 6.0 L [place] % (Auto) 8.7 Eos % (Auto) 0.2 L Baso % (Auto) 0.4 Neut # (Auto) 9100 H Lymph # (Auto) 600 L [place] # (Auto) 900 Eos # (Auto) 0 Baso # (Auto) 0 Sodium 135 L Potassium 3.6 Chloride 105 Carbon Dioxide 23 BUN 16 Creatinine 0.74 Estimated GFR > 60.0 BUN/Creatinine Ratio 21.6 Glucose 117 H Calcium 8.3 L Vancomycin Peak Vancomycin Trough 8.1 L 07/10/21 13:30 WBC RBC Hgb Hct MCV MCH MCHC RDW Plt Count Neut % (Auto) Lymph % (Auto) [place] % (Auto) Eos % (Auto) Baso % (Auto) Neut # (Auto) Lymph # (Auto) [place] # (Auto) Eos # (Auto) Baso # (Auto) Sodium Potassium Chloride Carbon Dioxide BUN Creatinine Estimated GFR BUN/Creatinine Ratio Glucose Calcium Vancomycin Peak 14.4 L Vancomycin Trough [facility] Medical History History of hidradenitis suppurativa Hypertension Left parietal mass Morbid obesity Obstructive sleep apnea Family History Father Myocardial infarct Mother Alive and well Social History household members: spouse and children Smoking Status: Former smoker alcohol intake: never Discharge Plan Discharge Plan Disposition: [facility] Quality VTE Deep Vein Thrombosis/Pulmonary Embolism Present on Admission: No MIPS - DC The patient has current or prior documentation of left ventricular ejection fraction (LVEF) less than 40%, or moderate or severely depressed left ventricular systolic function.: No
[2021-07-10] MEDS: SENNOSIDES 8.6 MG TABLET 17.2 MG PO (21:08)
[2021-07-10] MEDS: OXYCODONE/ACETAMINOPHEN 5/325 TABLET 1 TAB PO (22:23)
--- NOTE | 2021-07-11 06:08 | PC.NURSE ---
Patient transferred to [facility] at 22:35 by BLS transport. Report given to REBA Mac at [facility] @ 22:45.
== END 2021-07-10 22:35 | disposition short-term general hospital (02) | DRG 717 ==
LOC: ED 15:06 → AC 15:12
PROVIDERS: Nurse Practitioner Family; Specialist; Admitting Provider Internal Medicine; Emergency Provider Emergency Medicine; Referring Provider Emergency Medicine; Visit Provider Internal Medicine
PROC: 0JBB0ZZ Excision of Perineum Subcutaneous Tissue and Fascia, Open Approach (ICD-10-PCS; principal; 2021-07-08 18:15)
DX: N49.2 Inflammatory disorders of scrotum (principal); I48.20 Chronic atrial fibrillation, unspecified; Z68.42 Body mass index [BMI] 45.0-49.9, adult; I96 Gangrene, not elsewhere classified; E66.01 Morbid (severe) obesity due to excess calories; G47.33 Obstructive sleep apnea (adult) (pediatric); I10 Essential (primary) hypertension; Z79.01 Long term (current) use of anticoagulants; Z87.891 Personal history of nicotine dependence; Z20.822 Contact with and (suspected) exposure to COVID-19
CPT/HCPCS: 36415; 55100; 72193; 74176; 76870; 80048; 80053; 80076; 80202; 81001; 83605; 83735; 84145; 85025; 85610; 85730; 87040; 87070; 87075; 87076; 87205; 87635; 93005; 93010; 94762; 96361; 96365; 96366; 96367; 96375; 99222; 99284; 99285; C9803; J0171; J0295; J1650; J1885; J1956; J2250; J2405; J2543; J2704; J3010; J7168; Q9967

== ENCOUNTER → 2021-10-30 09:33 | Outpatient (CLI) | payer MEDICARE, OTHER, SELFPAY ==
[2021-07-08 15:15] VITALS: BMI 43.4
--- NOTE | 2021-10-30 | DI.MRI.S_ITS ---
PROCEDURE: MR LUMBAR SPINE WO CON INDICATIONS: Spinal stenosis, lumbar region with neurogenic TECHNIQUE: Noncontrast sagittal T1 spin echo and T2 fast echo, sagittal STIR, and T2 fast spin echo through the lumbar spine. In cases with scoliosis, additional coronal T2 fast spin echo may be performed. COMPARISON: [facility], CT, CT ABDOMEN PELVIS WO CON, 07/10/2021, 13:44. FINDINGS: Image quality: Excellent. Alignment and Curvature: There is normal bony alignment. Bone Marrow: Marrow is of normal overall signal. Large Schmorl's node noted in the superior endplate of the L2 vertebral body. No acute vertebral body compression fractures. Spinal Cord: Conus medullaris terminates at the T12-L1 disc level. Visualized cord demonstrates normal signal and size. Paraspinous Soft Tissues: No paravertebral masses. T12-L1: Normal appearance. L1-L2: Loss of disc signal. Mild bilateral facet hypertrophy. Mild narrowing of the central canal. Mild bilateral neural foraminal narrowing. No neural compression. L2-L3: Loss of disc signal. Mild bilateral facet hypertrophy. Mild narrowing of the central canal. Mild bilateral neural foraminal narrowing. No neural compression. L3-L4: Loss of disc signal. Mild to moderate diffuse disc bulge. Mild bilateral facet hypertrophy. Moderate narrowing of the central canal. Mild bilateral neural foraminal narrowing. No neural compression. Fissures noted in the posterior and anterior annulus. L4-L5: Loss of disc signal and slight loss of disc height. Mild, diffuse disc bulge. Small central disc protrusion. Mild bilateral facet hypertrophy. Moderate narrowing of the central canal. Mild right and fruv-on-[id number] left neural foraminal narrowing. No neural compression. L5-S1: Loss of disc signal and height. Mild, diffuse disc bulge. Mild bilateral facet hypertrophy. Mild narrowing of the central canal. Mild left neural foraminal narrowing. No neural compression. Ankylosis of the bilateral sacroiliac joints. IMPRESSION: 1. Multilevel degenerative disc disease. 2. Multilevel facet arthropathy. 3. No severe central canal narrowing. 4. No severe neural foraminal narrowing. 5. No neural compression. 6. Bilateral sacroiliac joint ankylosis stable compared to prior CT scan. Dictated by: Germania Aldridge MD, PhD on 10/30/2021 at 17:49 Approved by: Germania Aldridge MD, PhD on 10/30/2021 at 17:53
== END ==
PROVIDERS: PCP Internal Medicine; Referring Provider Internal Medicine; Visit Provider Internal Medicine
DX: M48.062 Spinal stenosis, lumbar region with neurogenic claudication (principal); M51.36 Other intervertebral disc degeneration, lumbar region; M47.816 Spondylosis without myelopathy or radiculopathy, lumbar region; M51.37 Other intervertebral disc degeneration, lumbosacral region; M47.817 Spondylosis without myelopathy or radiculopathy, lumbosacral region; M43.28 Fusion of spine, sacral and sacrococcygeal region; G60.9 Hereditary and idiopathic neuropathy, unspecified
CPT/HCPCS: 72148

== ENCOUNTER 2022-08-14 13:09 | Outpatient (CLI) | payer MEDICARE, OTHER, SELFPAY ==
[2021-07-08 15:15] VITALS: BMI 43.4
== END 2022-08-22 14:34 | disposition home or self-care (01) ==
LOC: PHYS 13:10
PROVIDERS: Family Provider Internal Medicine; PCP Internal Medicine; Referring Provider Podiatrist; Visit Provider Podiatrist
DX: G57.52 Tarsal tunnel syndrome, left lower limb (principal)
CPT/HCPCS: 95886; 95911

== ENCOUNTER → 2022-09-19 09:02 | Outpatient (CLI) | payer MEDICARE, OTHER, SELFPAY ==
[2021-07-08 15:15] VITALS: BMI 43.4
--- NOTE | 2022-09-19 | DI.MRI.S_ITS ---
PROCEDURE: MRFOOT LT WO CON INDICATIONS: Pain in left foot TECHNIQUE: Noncontrast sagittal T1 spin echo and T2 fast spin echo with fat saturation, long-axis T1 spin echo and T2 fast spin echo with fat saturation, short-axis T1 spin echo and T2 fast spin echo with fat saturation through the forefoot. COMPARISON: None. FINDINGS: Image quality: Excellent. Bones and joints: Osteoarthritic changes are noted throughout midfoot and forefoot joints with joint space narrowing, subchondral sclerosis and marginal osteophyte formation. There is mild marrow edema involving 3rd and 4th metatarsal heads and necks. Subtle linear hypointense signal involving lateral cortex of 4th metatarsal neck is noted. Questionable periosteal reaction surrounding 4th metatarsal neck is seen. No definite cortical disruption. No other area of marrow edema. No other fracture or dislocation is noted. No suspicious bony lesion. Soft tissues: The flexor and extensor tendons are intact. There are edema involving plantar foot muscles along plantar aspect of 2nd toe concerning for muscle strain/partial-thickness tear. No full-thickness muscle rupture. Mild dorsal midfoot and forefoot soft tissue swelling and edema is seen particularly over lateral aspect of midfoot. No discrete drainable fluid collection. Lisfranc ligament and joint is intact. Visualized portion of plantar fascia is intact. IMPRESSION: 1. Mild marrow edema involving 3rd and 4th metatarsal heads and necks with subtle signal abnormality in lateral cortex of 4th metatarsal neck and adjacent edema/periosteal reaction concerning for subtle incomplete stress fracture in 4th metatarsal neck and stress reaction in 3rd metatarsal neck. No other fracture or dislocation is seen. Midfoot and forefoot joint osteoarthritis. 2. Suggestion of muscle strain/partial-thickness tear involving plantar foot muscle along plantar aspect of 2nd and 3rd metatarsal shaft. No full-thickness muscle or tendon rupture. 3. Soft tissue swelling along dorsal and lateral portion of midfoot and forefoot. No drainable fluid collection is seen. Dictated by: Anthony Vera M.D. on 09/19/2022 at 12:02 Approved by: Anthony Vera M.D. on 09/19/2022 at 13:03
== END ==
PROVIDERS: Family Provider Internal Medicine; PCP Internal Medicine; Referring Provider Podiatrist; Visit Provider Podiatrist
DX: M19.072 Primary osteoarthritis, left ankle and foot (principal); R22.42 Localized swelling, mass and lump, left lower limb; M79.89 Other specified soft tissue disorders; M79.672 Pain in left foot
CPT/HCPCS: 73718

== ENCOUNTER → 2023-04-06 08:36 | Outpatient (CLI) | payer MEDICARE, OTHER, SELFPAY ==
[2022-11-20 16:47] VITALS: BMI 43.4
--- NOTE | 2023-04-06 08:38 | DI.RAD.S_ITS ---
PROCEDURE: XR LUMBAR SPINE MIN 4V INDICATIONS: Recheck TECHNIQUE: 5 views of the lumbar spine were acquired, including bilateral oblique views. COMPARISON: [facility], RG, XR L-SPINE 2-3V, 08/23/2021, 7:58. FINDINGS: Bones: 5 nonrib-bearing vertebrae are present. Minimal levocurvature. Straightening of normal lumbar lordosis. There is multilevel facet arthropathy, worse at L4-5 and L5-S1. Mild multilevel disc height loss with degenerative endplate changes and spurring is present. . No vertebral body compression fractures. No suspicious bony lesions. Diffusely decreased osseous mineralization. Soft tissues: Overlying bowel gas pattern is normal. No suspicious soft tissue calcifications. Atherosclerotic vascular calcifications. Oblique images: No definite pars defects. IMPRESSION: Multilevel degenerative changes of the lumbar spine. No evidence of ankylosing spondylitis. Dictated by: Teddy Pollack M.D. on 04/06/2023 at 9:57 Approved by: Teddy Pollack M.D. on 04/06/2023 at 9:59
== END ==
PROVIDERS: Family Provider Internal Medicine; PCP Internal Medicine; Referring Provider Physical Medicine & Rehabilitation; Visit Provider Physical Medicine & Rehabilitation
DX: M45.8 Ankylosing spondylitis sacral and sacrococcygeal region (principal); E66.01 Morbid (severe) obesity due to excess calories; M47.816 Spondylosis without myelopathy or radiculopathy, lumbar region; M48.061 Spinal stenosis, lumbar region without neurogenic claudication
CPT/HCPCS: 72110; 99214

== ENCOUNTER → 2024-04-04 08:37 | Outpatient (CLI) | payer MEDICARE, SELFPAY ==
[2022-11-20 16:47] VITALS: BMI 43.4
--- NOTE | 2024-04-04 08:40 | DI.RAD.S_ITS ---
PROCEDURE: XR LUMBAR SPINE MIN 4V INDICATIONS: BACK PAIN TECHNIQUE: Four views of the lumbar spine were acquired including obliques. COMPARISON: [facility], , XR LUMBAR SPINE MIN 4V, 04/06/2023, 8:42. FINDINGS: Bones: Five nonrib-bearing vertebrae are present. There is sacralization of the 5th lumbar vertebral body. Normal AP alignment and stable compared to the prior exam. Mild multilevel disc height loss. Anterior endplate spur formation in the upper lumbar spine and smooth anterior ankylosis in the lower thoracic spine. No vertebral body compression fractures. No suspicious bony lesions. Soft tissues: Overlying bowel gas pattern is normal. No suspicious soft tissue calcifications. Moderate abdominal aortic atherosclerotic calcification. Oblique images: Due to patient body habitus, any pars defects would not be well seen on the given images. No findings to imply pars defects. There is moderate facet sclerosis at L4 and L5. IMPRESSION: Stable vertebral body alignment and disc spacing. Multilevel mild degenerative changes without significant progression. Dictated by: Esthela Guajardo M.D. on 04/04/2024 at 10:42 Approved by: Esthela Guajardo M.D. on 04/04/2024 at 10:46
== END ==
PROVIDERS: Family Provider Internal Medicine; PCP Internal Medicine; Referring Provider Physical Medicine & Rehabilitation; Visit Provider Physical Medicine & Rehabilitation
DX: M45.9 Ankylosing spondylitis of unspecified sites in spine (principal); M47.816 Spondylosis without myelopathy or radiculopathy, lumbar region; M48.061 Spinal stenosis, lumbar region without neurogenic claudication
CPT/HCPCS: 72110

== ENCOUNTER → 2025-03-27 09:34 | Outpatient (CLI) | payer MEDICARE, SELFPAY ==
[2022-11-20 16:47] VITALS: BMI 43.4
--- NOTE | 2025-03-27 09:36 | DI.RAD.S_ITS ---
PROCEDURE: XR LUMBAR SPINE MIN 4V INDICATIONS: ANKYLOSING SPONDYLITIS LUMBAR TECHNIQUE: 5 views of the lumbar spine acquired, including flexion and extension views. COMPARISON: [facility], , XR LUMBAR SPINE MIN 4V, 04/04/2024, 8:39. FINDINGS: Lumbar spine curvature and alignment: Slight leftward curve lower thoracic and upper lumbar spine. Bones: There are no osseous abnormalities. Disc spaces: Moderate degenerative disc disease is seen at the T10-11 through L5-S1. There are syndesmophytes bridging the vertebral bodies particularly in the lower thoracic region. SI joints are not visualized and presumably ankylosed. Moderate degenerate facet disease L2-3 through L5-S1 . Moderate bilateral hip degeneration Soft tissues: No soft tissue swelling, calcification or mass. IMPRESSION: Multilevel degeneration. Syndesmophytes bridging the vertebral bodies and SI joint ankylosis compatible with the clinical diagnosis of chronic ankylosing spondylitis Dictated by: Serafin Hay M.D. on 03/28/2025 at 9:36 Approved by: Serafin Hay M.D. on 03/28/2025 at 9:38
== END ==
PROVIDERS: Family Provider Internal Medicine; Referring Provider Physical Medicine & Rehabilitation; Visit Provider Physical Medicine & Rehabilitation
DX: M45.8 Ankylosing spondylitis sacral and sacrococcygeal region (principal); M47.816 Spondylosis without myelopathy or radiculopathy, lumbar region; M47.817 Spondylosis without myelopathy or radiculopathy, lumbosacral region; M48.061 Spinal stenosis, lumbar region without neurogenic claudication; M51.34 Other intervertebral disc degeneration, thoracic region; M51.369 Other intervertebral disc degeneration, lumbar region without mention of lumbar back pain or lower extremity pain; M51.379 Other intervertebral disc degeneration, lumbosacral region without mention of lumbar back pain or lower extremity pain; M16.0 Bilateral primary osteoarthritis of hip
CPT/HCPCS: 72110